=== PATIENT | female | born 1945 | race Caucasian/White ===

== ENCOUNTER 2017-04-04 14:39 | Inpatient (IN) | payer OTHER ==
[~2017-04-04] VITALS: Ht 165.1 cm; Wt 90.3 kg
--- NOTE | 2017-04-04 15:14 | ED INFLUENZA/URI COMPLAINT ---
History of Present Illness General Chief Complaint: Upper Respiratory Sx/Fever Stated Complaint: URI/WHEEZING Source: patient Exam Limitations: no limitations Vital Signs & Intake/Output Vital Signs & Intake/Output Vital Signs Date Time Temp Pulse Resp B/P B/P Pulse O2 O2 Flow FiO2 Mean Ox Delivery Rate 04/05 0809 95 Nasal 2.0L Cannula 04/05 0807 98.6 66 18 125/60 95 Nasal 2.0L Cannula 04/04 1938 97.4 74 24 135/66 85 Room Air Room Air 04/04 1810 99.2 75 24 136/70 95 Aerosol Mask 04/04 1740 92 Nasal 2.0L Cannula 04/04 1645 98 Nasal 2.0L Cannula 04/04 1527 94 Nasal 2.0L Cannula 04/04 1527 100.3 86 24 159/75 88 Room Air Room Air 04/04 1520 100.1 97 24 173/88 86 Room Air ED Intake and Output 04/05 0000 04/04 1200 Intake Total Output Total Balance Patient 194 lb Weight Allergies Coded Allergies: amoxicillin (HIVES 04/04/17) Reconcile Medications No Known Home Medications Triage Note: PT TO ER C/C SOB, DRY/PROD COUGH, DENIES SORE THROAT. TEMP 100.1. RA SAT 86%, Triage Nurses Notes Reviewed? yes Onset: Gradual Duration: day(s): Timing: recent history Severity: moderate HPI: 71yo female presents to ED complaining of cough productive of clear mucus and URI symptoms x 4 days. Patient also reports wheezing and fatigue for the past several days. Also reports decreased PO intact, no appetite. She notes tactile fevers however did not record her temperature at home. Patient began taking Mucinex which helped slightly with her congestion symptoms. Patient current daily smoker. Today patient began experiencing dyspnea especially worse with exertion and was concerned so reported to the ED. the patient denies medical history, she does not use any inhalers. She denies hemoptysis, chest pain, abdominal pain, nausea, vomiting. (Brooklyn Bailey) Past History Travel History Traveled to [place] past 21 day No Medical History Any Pertinent Medical History? none Surgical History Surgical History: non-contributory Psychosocial History What is your primary language Congolese Tobacco Use: Current Daily Use Daily Tobacco Use Amount/Type: => 5 Cigarettes daily Family History Hx Contributory? No (Brooklyn Bailey) Review of Systems Review of Systems Constitutional: Reports: see HPI. EENTM: Reports: see HPI. Respiratory: Reports: see HPI. Cardiovascular: Reports: no symptoms. GI: Reports: see HPI. Genitourinary: Reports: no symptoms. Musculoskeletal: Reports: no symptoms. Skin: Reports: no symptoms. Neurological/Psychological: Reports: no symptoms. Hematologic/Endocrine: Reports: no symptoms. Immunologic/Allergic: Reports: no symptoms. All Other Systems: Reviewed and Negative (Brooklyn Bailey) Physical Exam Physical Exam General Appearance: well developed/nourished, no apparent distress, alert, awake Head: atraumatic, normal appearance Eyes: Bilateral: normal appearance. Ears, Nose, Throat: hearing grossly normal Neck: normal inspection, supple, full range of motion Respiratory: no respiratory distress, diffuse wheezing through out all lung elaine Cardiovascular: regular rate/rhythm Gastrointestinal: normal bowel sounds, soft, non-tender, no organomegaly Back: normal inspection, normal range of motion Extremities: normal inspection, normal range of motion Neurologic/Psych: awake, alert, oriented x 3 Skin: intact, normal color, warm/dry Core Measures Sepsis Present: No Sepsis Focused Exam Completed? No (Brooklyn Bailey) Progress Differential Diagnosis: influenza, otitis, pneumonia, pharyngitis, bronchitis, COPD, CHF Plan of Care: Orders Procedure Date/time Status Regular Diet 04/05 B Active Change service to 04/05 0900 Active Teach/Educate 04/05 0807 Active Pain Treatment and Response 04/05 0807 Active Nutritional Intake, Monitor 04/05 0807 Active Isolation 04/05 0807 Active Patient Care Conference 04/05 0807 Active Activity/Ambulation 04/05 0807 Active Change service to 04/05 0738 Active CBC WITHOUT DIFFERENTIAL 04/05 0600 Complete BASIC ELECTROLYTES PLUS BUN&CR 04/05 0600 Complete ARTERIAL BLOOD GAS (GEN) 04/05 0100 Complete LOWER RESPIRATORY CULTURE 04/05 0011 Active BLOOD CULTURE 04/05 0011 Active TRC EVALUATION (GEN) 04/05 0000 Active FingerStick- Glucose 04/05 UNK Active ECHOCARDIOGRAM 04/05 UNK Active TROPONIN LEVEL 04/04 2359 Complete EKG 04/04 2359 Active Pathway - chart 04/04 2247 Active House Staff 04/04 2247 Active Patient Data 04/04 2247 Active Patient Data 01/16 2101 Active ED Holding Orders 04/04 2056 Active Admit to inpatient 04/04 2056 Active Vital Signs 04/04 2056 Active Code Status 04/04 2056 Active Add-on Test (ER Only) 04/04 1941 Active EKG 04/04 1738 Active TROPONIN LEVEL 04/04 1554 Complete B-TYPE NATRIURETIC PEP (BNP) 04/04 1554 Complete Intake & Output 04/04 1516 Active LACTIC ACID 04/04 1513 Complete COMPREHENSIVE METABOLIC PANEL 04/04 1513 Complete CBC WITHOUT DIFFERENTIAL 04/04 1513 Complete RAPID VIRAL INFLUENZA A 04/04 1455 Complete Lab Add-on Test 04/04 UNK Active VTE Mechanical Prophylaxis 04/04 UNK Active Current Medications Sig/Jose Roberto Start time Last Medication Dose Stop Time Status Admin Enoxaparin Sodium 40 MG DAILY 04/05 1000 AC 04/05 (Lovenox) 1002 Methylprednisolone 40 MG Q8 04/05 0600 AC 04/05 (Solumedrol) 0634 Sodium Chloride 1,000 ML Q13H 04/05 0015 AC 04/05 (Normal Saline 0.9%) 0306 Azithromycin 500 MG DAILY 04/04 2345 AC 04/05 (Zithromax) 0127 Sodium Chloride 250 ML (Normal Saline 0.9%) Guaifenesin 600 MG Q12 04/04 2345 AC 04/05 (Mucinex) 1002 Acetaminophen 1,000 MG Q6P PRN 04/04 2300 AC (Ofirmev) N/A 1 UNIT (No Carrier) Oxycodone HCl 5 MG Q6P PRN 04/04 2300 AC (Roxicodone) Acetaminophen 650 MG Q6P PRN 04/04 2245 AC (Tylenol) Albuterol Sulfate 3 ML ONCE ONE 04/04 1700 CAN (Proventil) 04/04 1701 Laboratory Tests 04/05/17 0550: Anion Gap 16, Estimated GFR > 60, BUN/Creatinine Ratio 31.1 H, CBC w Diff MAN DIFF ORDERED, RBC 4.05 L, MCV 91.4, MCH 30.7, RDW 13.4, MPV 10.1, Gran % 84.9 H, Lymphocytes % 8.2 L, Monocytes % 6.6, Eosinophils % 0.2, Basophils % 0.1, Absolute Granulocytes 9.6 H, Segmented Neutrophils 85 H, Band Neutrophils 2, Absolute Lymphocytes 0.9 L, Lymphocytes 7 L, Monocytes 6, Absolute Monocytes 0.7 H, Absolute Eosinophils 0, Absolute Basophils 0, Platelet Estimate ADEQUATE , Polychromasia 1+, Ovalocytes FEW, PUBS MCHC 33.6, Fld Total RBCs Counted 100 04/05/17 0155: pH 7.36, pCO2 37, pO2 68 L, HCO3 20 L, ABG O2 Sat (Measured) 93.0 L, P-50 ( Temp Corrected) Y, Carboxyhemoglobin 0.6 L, O2 Concentration % 2 LPM, Temperature 97.4, O2 Delivery Method N/C, Phlebotomy Draw Site RIGHT RADIAL 04/05/17 0050: Troponin I 0.01 04/04/17 1813: Lactic Acid Cancelled 04/04/17 1554: Anion Gap 17 H, Estimated GFR > 60, BUN/Creatinine Ratio 17.5, Glucose 109 H, Lactic Acid 0.8, Calcium 9.2, Total Bilirubin 0.4, AST 38 H, ALT 35, Alkaline Phosphatase 78, Troponin I < 0.01, Nhz-V-Mgxahvvykex Pept 183 H, Total Protein 7.2, Albumin 4.2, Globulin 3.0, Albumin/Globulin Ratio 1.4, CBC w Diff NO MAN DIFF REQ, RBC 4.48, MCV 89.4, MCH 30.4, RDW 13.4, MPV 8.2, Gran % 80.2 H, Lymphocytes % 9.1 L, Monocytes % 10.2 H, Eosinophils % 0.1, Basophils % 0.4, Absolute Granulocytes 7.0 H, Absolute Lymphocytes 0.8 L, Absolute Monocytes 0.9 H, Absolute Eosinophils 0, Absolute Basophils 0, PUBS MCHC 33.9 Microbiology 04/05 49 BLOOD: Blood Culture - RECD 04/05 10 LOWER RESP: Respiratory Culture - COLB 04/05 10 LOWER RESP: Gram Stain - COLB 04/05 10 BLOOD: Blood Culture - COLB 04/04 1455 NASOPHARYN: Influenza Virus A & B Rapid Smear - COMP Patient has significant wheezing following DuoNeb, will initiate IV Solu-Medrol, IV magnesium, continuous albuterol nebulizer. Following medications patient has persistent wheezing, hypoxia room air. Patient had oxygen saturation of 87% while ambulating without supplemental oxygen. Due to hypoxia this patient will likely require admission as she has not O2 dependent at home. This patient may have undiagnosed COPD, pulmonary consult recommended. Dr. Jacobson agrees with this plan. The patient was discussed with Dr. Valentino who recommends adding on BNP prior to decision for telemetry versus general medicine admission. Diagnostic Imaging: Viewed by Me: Radiology Read. Discussed w/RAD: Radiology Read. CXR Impression: PATIENT: SAAD REEVES PRESENT AGE: 71 PATIENT ACCOUNT NO: [id number] : 47 LOCATION: [facility] ORDERING PHYSICIAN: Brooklyn SUBRAMANIAN SERVICE DATE: 04/04/17 EXAM TYPE: RAD - XRY-CHEST XRAY, TWO VIEWS EXAMINATION: CHEST 2 VIEWS CLINICAL INFORMATION: Cough. COMPARISON: None. TECHNIQUE: PA and lateral views of the chest were obtained. FINDINGS: The cardiac silhouette is not enlarged. The mediastinal and hilar contours are unremarkable. There are neither pleural effusions nor pneumothoraces. There is mild interstitial prominence present throughout both lungs. There are no consolidations. The osseous structures are unremarkable. IMPRESSION: No consolidations. Mild interstitial prominence throughout both lungs. This is nonspecific, though favored to be chronic. DICTATED BY: Juan José Marquez MD DATE/TIME DICTATED:04/04/171545 OFFICE SERVICES REPRESENTATIVE:NORRIS DATE/TIME TRANSCRIBED:04/04/171545 CONFIDENTIAL, DO NOT COPY WITHOUT APPROPRIATE AUTHORIZATION. <Electronically signed in Other Vendor System> SIGNED BY: Juan José Marquez MD 04/04/17 2557 Initial ED EKG: sinus rhythm @74bpm, flattened t waves (Katlyn SUBRAMANIAN,Brooklyn Paredes) Departure Departure Disposition: STILL A PATIENT Condition: Stable Clinical Impression Primary Impression: Hypoxia Secondary Impressions: Bronchitis Dyspnea Qualifiers: Dyspnea type: dyspnea on exertion Qualified Code: R06.09 - Other forms of dyspnea Referrals: Marita Ortiz DO (PCP/Family) Departure Forms: Customer Survey General Discharge Information Prescriptions: Current Visit Scripts No Known Home Medications Admission Note Spoke With: Allegra Valentino MD Documentation of Exam: Documentation of any treatments & extenuating circumstances including Concerns Regarding Discharge (functional status, medication knowledge or non-compliance, living conditions, etc.) that warrant an admission rather than observation: [ Hypoxemia on room air requiring supplemental oxygen, respiratory therapy, pulmonology consult for possible underlying COPD, IV steroids, possible IV antibiotics, repeat labs, premature discharge would be medically unsafe.] (Katlyn SUBRAMANIAN,Brooklyn Paredes) PA/NITROGEN OPERATOR Co-Sign Statement Statement: ED Attending supervision documentation- [X] I saw and evaluated the patient. I have also reviewed all the pertinent lab results and diagnostic results. I agree with the findings and the plan of care as documented in the PA's/NITROGEN OPERATOR's documentation. [X] I have reviewed the ED Record and agree with the PA's/NITROGEN OPERATOR's documentation. [] Additions or exceptions (if any) to the PAs/NITROGEN OPERATOR's note and plan are summarized below: [] (Indira PIERRE,Marley)
--- NOTE | 2017-04-04 15:53 | RADIOLOGY REPORT ---
EXAMINATION: CHEST 2 VIEWS CLINICAL INFORMATION: Cough. COMPARISON: None. TECHNIQUE: PA and lateral views of the chest were obtained. FINDINGS: The cardiac silhouette is not enlarged. The mediastinal and hilar contours are unremarkable. There are neither pleural effusions nor pneumothoraces. There is mild interstitial prominence present throughout both lungs. There are no consolidations. The osseous structures are unremarkable. IMPRESSION: No consolidations. Mild interstitial prominence throughout both lungs. This is nonspecific, though favored to be chronic.
[2017-04-04 15:59] LABS: ABSOLUTE BASOPHIL COUNT 0 /CUMM (0.0-0.2); ABSOLUTE EOSINOPHIL COUNT 0 /CUMM (0.0-0.7); ABSOLUTE LYMPH COUNT 0.8 /CUMM (1.2-3.4); ABSOLUTE MONOCYTE COUNT 0.9 /CUMM (0.10-0.60); BASOPHIL % 0.4 % (0.0-2.0); EOSINOPHIL % 0.1 % (0-5); HEMATOCRIT 40.1 % (37-47); MEAN CORPUSCULAR HGB 30.4 PG (27.0-31.0); MEAN CORPUSCULAR HGB CONC 33.9 G/DL (33.0-37.0); MEAN CORPUSCULAR VOLUME 89.4 FL (81.0-99.0); MEAN PLATELET VOLUME 8.2 FL (7.4-10.4); PLATELET COUNT 195 /CUMM (130-400); RBC DISTRIBUTION WIDTH 13.4 % (11.5-14.5); RED BLOOD CELL CT 4.48 /CUMM (4.20-5.40); WHITE BLOOD CELL COUNT 8.7 /CUMM (4.8-10.8)
[2017-04-04 16:00] LABS: GRANULOCYTE % 80.2 % (42.2-75.2)
--- NOTE | 2017-04-04 21:49 | History & Physical ---
Kendell PIERRE,[facility] 04/04/17 2148: General Information and HPI MD Statement: I have seen and personally examined SAAD REEVES and documented this H&P. The patient is a 71 year old F who presented with a patient stated chief complaint of [shortness of breath]. Source of Information: patient Exam Limitations: no limitations History of Present Illness: Patient is 71-year-old female with no significant past medical history other than prediabetes. She is presenting to [facility] ED on 04/04 with complaint of shortness of breath. The patient was in her usual state of health until last Monday when she started experiencing symptoms of upper URI sneezing and scratchiness in throat. The past couple of days patient started experiencing shortness of breath which has been becoming worse to a point that she becomes short of breath with little bit of exertion during activities like pulling up her socks. She also reports chest congestion for past 2 days for which she has been taking Mucinex every 6h. She reports mostly dry cough with production of small amount of clear white phlegm couple of times. Also reports nasal congestion. As per patient she has been feeling fatigued and has decreased oral intake since past few days. Patient has been smoking for more than past 20 years almost consumes 1-3/4 of a pack of cigarettes. She does not carry the diagnosis of COPD has never been intubated does not use oxygen at home. Sleeps with one pillow and can walk 3 blocks without getting short of breath at baseline . Patient did not receive flu shot this season but did receive a pneumonia shot. No sick contacts Review of system patient denies fevers and chills endorses bilateral lower extremity swelling. Patient's PCP rule out DVT by venous Doppler. She was advised to wear compression stockings for that. During the encounter the patient was visibly short of breath and was having trouble completing sentences without becoming tachypneic Allergies/Medications Allergies: Coded Allergies: amoxicillin (HIVES 04/04/17) Home Med list No Known Home Medications Past History Travel History Traveled to [place] past 21 day No Surgical History Surgical History: non-contributory Past Family/Social History Family History Relations & Conditions if any MOTHER (CVA). Psychosocial History Where do you live? Home Who Do You Live With? spouse, child Services at Home: None Primary Language: Macedonian Smoking Status: Current Everyday Smoker ETOH Use: occasional use Illicit Drug Use: denies illicit drug use Functional Ability ADLs Independent: dressing, eating, toileting, bathing. Ambulation: independent IADLs Independent: shopping, housework, finances, food prep, telephone, transportation , medication admin. Review of Systems Review of Systems Constitutional: Reports: see HPI. Denies: diaphoresis, weakness. EENTM: Reports: no symptoms. Cardiovascular: Denies: chest pain, orthopena. Respiratory: Reports: short of breath, wheezing. GI: Reports: no symptoms. Genitourinary: Reports: no symptoms. Musculoskeletal: Reports: no symptoms. Skin: Reports: no symptoms. Exam & Diagnostic Data Last 24 Hrs of Vital Signs/I&O Vital Signs Date Time Temp Pulse Resp B/P B/P Pulse O2 O2 Flow FiO2 Mean Ox Delivery Rate 04/04 1938 97.4 74 24 135/66 85 Room Air Room Air 04/04 1810 99.2 75 24 136/70 95 Aerosol Mask 04/04 1740 92 Nasal 2.0L Cannula 04/04 1645 98 Nasal 2.0L Cannula 04/04 1527 94 Nasal 2.0L Cannula 04/04 1527 100.3 86 24 159/75 88 Room Air Room Air 04/04 1520 100.1 97 24 173/88 86 Room Air Intake & Output 04/05 0800 04/05 0000 04/04 1600 Intake Total Output Total Balance Patient 194 lb Weight Physical Exam General Appearance Alert, Oriented X3, Cooperative HEENT Atraumatic, PERRLA, EOMI Neck Supple Cardiovascular Normal S1, Normal S2 Lungs diffuse ronchi Abdomen Normal Bowel Sounds, Soft, No Tenderness Neurological Normal Speech Extremities No Cyanosis, b/l +1 pitting edema lower extremity Last 24 Hrs of Labs/Abel: Laboratory Tests 04/05/17 0155: pH 7.36, pCO2 37, pO2 68 L, HCO3 20 L, ABG O2 Sat (Measured) 93.0 L, P-50 ( Temp Corrected) Y, Carboxyhemoglobin 0.6 L, O2 Concentration % 2 LPM, Temperature 97.4, O2 Delivery Method N/C, Phlebotomy Draw Site RIGHT RADIAL 04/05/17 0050: Troponin I 0.01 04/04/17 1813: Lactic Acid Cancelled 04/04/17 1554: Anion Gap 17 H, Estimated GFR > 60, BUN/Creatinine Ratio 17.5, Glucose 109 H, Lactic Acid 0.8, Calcium 9.2, Total Bilirubin 0.4, AST 38 H, ALT 35, Alkaline Phosphatase 78, Troponin I < 0.01, Lax-V-Hzdxlwfscaw Pept 183 H, Total Protein 7.2, Albumin 4.2, Globulin 3.0, Albumin/Globulin Ratio 1.4, CBC w Diff NO MAN DIFF REQ, RBC 4.48, MCV 89.4, MCH 30.4, RDW 13.4, MPV 8.2, Gran % 80.2 H, Lymphocytes % 9.1 L, Monocytes % 10.2 H, Eosinophils % 0.1, Basophils % 0.4, Absolute Granulocytes 7.0 H, Absolute Lymphocytes 0.8 L, Absolute Monocytes 0.9 H, Absolute Eosinophils 0, Absolute Basophils 0, PUBS MCHC 33.9 Microbiology 04/05 0050 BLOOD: Blood Culture - RECD 04/05 0011 LOWER RESP: Respiratory Culture - ORD 04/05 0011 LOWER RESP: Gram Stain - ORD 04/05 10 BLOOD: Blood Culture - ORD 04/04 1455 NASOPHARYN: Influenza Virus A & B Rapid Smear - COMP Diagnostic Data CXR Results No consolidations. Mild interstitial prominence throughout both lungs. This is nonspecific, though favored to be chronic. Assessment/Plan Assessment: Patient is 71-year-old female with no significant past medical history other than prediabetes. She is presenting to [facility] ED on 04/04 with complaint of shortness of breath. -VS MAXIMUM TEMPERATURE 100.3, oxygen saturation 86% on room air on presentation improved to 92% on 2 L -Pertinent labs CBC WNL, Anion gap 17, proBNP 183, flu test negative -In ED patient received magnesium sulfate, 125 methylprednisone and nebulization treatment -The patient is being admitted to general medicine floor and is being treated and evaluated for following conditions #Acute hypoxic respiratory failure Patient presented with shortness of breath along with oxygen saturation of 86% on room air, she improved to 92% on 2 L and 95% on aerosol mask she again came to 85% on room air. Patient was visibly tachypneic during the encounter and was having trouble completing her sentences without becoming short of breath. Patient has been smoking for past 20 years about one pack per day. She might have underlying COPD and will require evaluation for that. Given her recent URI there might be a component of viral bronchitis. Consider Tamiflu if patient spikes fever greater than 100.9 as sensitivity of rapid flu test is about 60-70% -Monitor WBC and fever curve (expected bump in WBC count secondary to steroids) -Oxygen supplementation to maintain oxygen saturation above 92 -IV Solu-Medrol every 8H -TRC, Mucinex, Z-Jose -ABG's -F/u LRS and blood cultures -Outpatient referral for floral designer salesperson for pulmonary function test #Smoker -Nicotine patch -Counseled on smoking cessation #B/L lower extremity edema -Continue comression stocking and leg elevation -Echocardiogram to rule out CHF #Prediabetes -check HbA1c #Full code/regular diet/DVT prophylaxis with Lovenox As Ranked By This Provider Problem List: 1. Dyspnea Qualifiers Dyspnea type: dyspnea on exertion Qualified Code: R06.09 - Other forms of dyspnea 2. Hypoxia Core Measures/Misc (12/04) Acute Coronary Syndrome ACS Diagnosis: No Congestive Heart Failure Congestive Heart Failure Diagnosis No Cerebrovascular Accident CVA/TIA Diagnosis: No VTE (View Protocol) VTE Risk Factors Age>40 No Mechanical VTE Prophylaxis d/t N/A MechProphylax Ordered No VTE Pharm Prophylaxis d/t NA PharmProphylax ordered Sepsis (View protocol) Sepsis Present: No Sole Smith 04/05/17 0334: Resident Review Statement Resident Statement: examined this patient, discussed with chemist intern Other Findings: Patient is a 71-year-old pleasant woman with no past medical history except for prediabetes and current heavy smoker presented to the ED for the evaluation of URI symptoms and shortness of breath. Patient was in his usual state of health until 5 days ago when she started having URI symptoms including postnasal drip, chest congestion and irritation in the throat complicated with shortness of breath mostly with exertion. With the last 2 days she has been feeling more congested with productive cough ,has been taking Mucinex without much relief. Also she reports worsening shortness of breath with wheezing without any chest discomfort palpitations denies any fever or chills, patient received pneumo vaccine but did not get a flu vaccine this year. Other review of system is negative Patient did mention that she has been having lower extremity swelling for a couple of weeks had a Doppler venous ultrasound as an outpatient to rule out any underlying DVT also has been evaluated by vascular surgeon and apparently had a Doppler arterial ultrasound that ruled out) peripheral vascular disease, she has been using compression stockings. She has a long-standing history of smoking smoked more than 20 years , 1-3/4 of a pack of cigarettes ,continues to smoke at least since 10 cigs, never been diagnosed with any underlying lung disease/COPD. Vitals on admission temperature MAXIMUM TEMPERATURE of 100.3, pulse 97, respiratory 24, blood pressure 173/88 improved to 136/70, patient was initially room air desaturated to 88% was put on 2 L of oxygen per nasal cannula. On examination: General Appearance:alert oriented 3, mild to moderate distress Skin: Grossly normal HEENT: PERRLA Neck: Supple, No JVD Cardiovascular: Regular Rate, Normal S1, Normal S2. Lungs: Bilateral coarse rhonchi on exam Abdominal exam : Normal bowel sounds without any tenderness Neurological: Grossly intact Extremities : Minimal to 1+ pitting edema bilaterally in the lower extremities Pertinent labs on admission with normal WBC count H&H stable, elevated anion gap 17, slight transaminitis AST 38 proBNP 183 ABG :showed PO2 68, bicarbonate 20, pH 7.36 with PCO2 37 chest x-ray normal Negative for influenza Assessment and plan Patient is a 71-year-old pleasant woman with no past medical history except for prediabetes and current heavy smoker presented to the ED for the evaluation of URI symptoms and shortness of breath, patient was in acute respiratory distress upon arrival in the ED desaturated to 86-88% was put on 2 L of oxygen nasal cannula. Patient will likely have an underlying component of COPD due to long-standing smoking history we will treat her with IV steroids, also on the basis of upper respiratory symptoms with rhonchi on examination patient might have underlying bronchitis Problem list Acute hypoxic respiratory failure likely due to undiagnosed COPD exacerbation with suspected. Bronchitis history of lower extremity swelling -rule out CHF Chronic every day smoker History of prediabetes DVT prophylaxis with Lovenox Plan Acute hypoxic respiratory failure likely due to undiagnosed COPD exacerbation with suspected. Bronchitis * Admit the patient [facility] floor * Patient already received 1 dose of IV Solu-Medrol 125 mg in the ED will continue with IV Solu-Medrol 40 mg every 8 hours. * Start the patient on IV azithromycin for possible bacterial bronchitis * Continue with gentle hydration * Obtain blood and sputum cultures. * Monitor vitals every 4 hours * If patient spikes fever will consider starting the patient on Tamiflu to empirically treat her for influenza as the sensitivity of flu swab is only 60-70 % history of lower extremity swelling -rule out CHF * Obtain echocardiogram * 2 sets of troponin with EKG * Continue with compression stockings * Keep the legs elevated. Chronic every day smoker * Consider nicotine patch. History of prediabetes * Consider hemoglobin A1c DVT prophylaxis with Lovenox Mild to moderate pain controlled with Tylenol Patient is full code . Allegra Valentino 04/05/17 0456: Attending MD Review Statement Attending Statement Attending MD Statement: examined this patient, discuss w/resident/PA/GANG BOSS, agreed w/resident/PA/GANG BOSS, reviewed EMR data (avail), reviewed images, amended to note Attending Assessment/Plan: CC: Shortness of breath PMH: Prediabetes Patient came to ER for acute worsening of shortness of breath today. Patient states that she has not been feeling well since last Monday (7 days), started with scratchy throat followed by chest congestion, nasal discharge then on Monday patient started to notice worsening of breathing, cough with minimal clear sputum production. Patient tried taking Mucinex but cough got progressively worse and worse along with worsening of breathing to the extent that she could not even walk a few steps today so she came to ER. She thought she felt febrile at home and took aspirin but she did not have actual fever. Denies any myalgia, denies chest pain, palpitations, orthopnea, PND, dizziness, loss of consciousness, nausea vomiting or any other complaints. Since 6 months patient has been noticing lower extremity swelling, right more than left, was investigated with Doppler ultrasound bilateral lower extremity, then was started on compression stockings which make her feel better. Denies any use of Lasix, denies any significant weight gain, night sweats or chills. Her has cancer but he is not sick around her. Extensive smoking history. Vitals: T max 100.3, also 97, RR 24, blood pressure 173/88, saturating 86% on room air improved to 92% on 2 L nasal cannula On exam: A O 3, cooperative, moderate respiratory distress, neck supple, JVD normal, no lymphadenopathy, mucosa dry, no focal neurological deficit, +1 leg edema R>L, no obvious skin rashes or inflammation CVS: S1-S2, RRR. RS: Bilateral rhonchi, tachypneic, transmitted sounds. Abdomen: Soft, NT, ND, bowel sounds present. Labs: WBC 8.7, hemoglobin 13.6, hematocrit 40.1, platelet 195, neutrophils 80%, sodium 145, potassium 4.1, chloride 105, bicarbonate 22, BUN 14, creatinine 0.8, glucose 109, calcium 9.2 LFT unremarkable, proBNP 183, rapid flu negative CXR: No consolidations. Mild interstitial prominence throughout both lungs. This is nonspecific, though favored to be chronic. Assessment and plan 71-year-old female with no significant past medical history, not on home nebulization inhaler treatment but extensive smoking history presented in ER for worsening of shortness of breath since last 5-6 days preceded by URI symptoms of nasal congestion, nasal discharge, scratchy throat, chest congestion. Shortness of breath is also associated with cough with minimal clear colored sputum production, denies any chest pain, palpitations. T max of 100.3 in ER, bilateral rhonchi present but no significant wheezing or prolonged expiration. Patient has significant work of breathing with tachypnea. According to her she feels much better after nebulization treatment in ER. It appears that patient may have baseline COPD which is not diagnosed, and URI may have triggered her exacerbation prominent bronchitis. At the same time influenza is also a possibility as rapid flu test has low sensitivity. If patient spikes fever then consider starting her on Tamiflu empirically. No evidence of pneumonia, proBNP unremarkable, JVD not elevated, no crackles or ruling out heart failure. + Acute hypoxic respiratory failure probably to underlying COPD with exacerbation - Admit to general medicine - Try to wean off oxygen - IV methylprednisolone 40 mg every 8 hours - IV azithromycin - TRC nebulization with albuterol and ipratropium scheduled and when necessary - Mucinex scheduled twice a day - Obtain 2-D echocardiogram given her extensive smoking history and bilateral lower extremity edema - Adequate pain control - DVT prophylaxis - Nicotine patch - Consider starting empiric Tamiflu if fever spikes - Accu-Cheks as patient being on IV methylprednisolone
--- NOTE | 2017-04-05 04:58 | Admission Certification ---
Admission Certification Certification Statement - As attending physician, I certify that at the time of - admission, based on clinical presentation, severity of - symptoms, need for further diagnostic testing and - therapeutic interventions, and risk of adverse outcomes - without in-hospital treatment, in my clinical assessment, - this patient requires an acute hospital stay for a minimum - of two nights or longer. I have also considered psychsocial - factors such as support system, advanced age, financial - issues, cognitive issues, and failed out-patient treatments, - past re-admission history, safety of patient, and lack of - compliance as applicable. Specific rationale supporting this admission is: Suspected COPD, with exacerbation and hypoxia
[2017-04-05 06:07] LABS: ABSOLUTE BASOPHIL COUNT 0 /CUMM (0.0-0.2); ABSOLUTE EOSINOPHIL COUNT 0 /CUMM (0.0-0.7); ABSOLUTE GRANULOCYTE CT 9.6 /CUMM (1.4-6.5); ABSOLUTE LYMPH COUNT 0.9 /CUMM (1.2-3.4); ABSOLUTE MONOCYTE COUNT 0.7 /CUMM (0.10-0.60); BASOPHIL % 0.1 % (0.0-2.0); EOSINOPHIL % 0.2 % (0-5); GRANULOCYTE % 84.9 % (42.2-75.2); MEAN CORPUSCULAR HGB 30.7 PG (27.0-31.0); MEAN CORPUSCULAR HGB CONC 33.6 G/DL (33.0-37.0); MEAN CORPUSCULAR VOLUME 91.4 FL (81.0-99.0); MEAN PLATELET VOLUME 10.1 FL (7.4-10.4); PLATELET COUNT 168 /CUMM (130-400); RBC DISTRIBUTION WIDTH 13.4 % (11.5-14.5); RED BLOOD CELL CT 4.05 /CUMM (4.20-5.40); WHITE BLOOD CELL COUNT 11.3 /CUMM (4.8-10.8)
--- NOTE | 2017-04-05 07:31 | PN- Housestaff ---
Subjective Follow-up For: COPD exacerbation Complaints: SOB Subjective: Patient was seen and examined this morning. She is still very short of breath and cannot speak in full sentences but feeling better after starting IV steroids and nebulizations. Her oxygen requirement is 2 L. She remained afebrile and hemodynamically stable. Review of Systems Constitutional: Denies: chills, diaphoresis, fever. EENTM: Denies: visual changes, eye pain. Cardiovascular: Denies: edema, orthopena. Respiratory: Reports: short of breath. Gastrointestinal: Denies: constipation. Genitourinary: Denies: dysuria, frequency. Objective Last 24 Hrs of Vital Signs/I&O Vital Signs Date Time Temp Pulse Resp B/P B/P Pulse O2 O2 Flow FiO2 Mean Ox Delivery Rate 04/05 0809 95 Nasal 2.0L Cannula 04/05 0807 98.6 66 18 125/60 95 Nasal 2.0L Cannula 04/04 1938 97.4 74 24 135/66 85 Room Air Room Air 04/04 1810 99.2 75 24 136/70 95 Aerosol Mask 04/04 1740 92 Nasal 2.0L Cannula 04/04 1645 98 Nasal 2.0L Cannula 04/04 1527 94 Nasal 2.0L Cannula 04/04 1527 100.3 86 24 159/75 88 Room Air Room Air 04/04 1520 100.1 97 24 173/88 86 Room Air Intake & Output 04/05 1600 04/05 0800 04/05 0000 Intake Total 730 Output Total 500 Balance 230 Intake, IV 250 Intake, Oral 480 Output, Urine 500 Patient 194 lb Weight Weight Reported by Patient Measurement Method Physical Exam General Appearance: Alert, Oriented X3, Cooperative, Mild Distress Cardiovascular: Regular Rate, Normal S1, Normal S2 Lungs: bilateral wheezing and reduced air entry Abdomen: Soft, No Tenderness, No Hepatospenomegaly Extremities: No Clubbing, No Cyanosis, No Edema Current Medications: Current Medications Sig/Jose Roberto Start time Last Medication Dose Route Stop Time Status Admin Acetaminophen 1,000 MG Q6P PRN 04/04 2300 AC N/A 1 UNIT IV Acetaminophen 650 MG Q6P PRN 04/04 2245 AC PO Albuterol Sulfate 18 ML ONCE ONE 04/04 1715 DC 04/04 INH 04/04 1716 1728 Albuterol Sulfate 3 ML ONCE ONE 04/04 1700 CAN INH 04/04 1701 Albuterol Sulfate 3 ML ONCE ONE 04/04 1600 DC 04/04 INH 04/04 1601 1625 Azithromycin 500 MG DAILY 04/04 2345 AC 04/05 Sodium Chloride 250 ML IV 0127 Enoxaparin Sodium 0 .STK-MED ONE 04/05 1001 DC SC Enoxaparin Sodium 40 MG DAILY 04/05 1000 AC 04/05 SC 1002 Guaifenesin 600 MG Q12 04/04 2345 AC 04/05 PO 1002 Ipratropium [place] 2.5 ML ONCE ONE 04/04 1600 DC 04/04 INH 04/04 1601 1624 Magnesium Sulfate 1 GM ONCE ONE 04/04 1745 DC 04/04 Dextrose/Water 100 ML IV 04/04 2144 1806 Methylprednisolone 0 .STK-MED ONE 04/05 0630 DC .ROUTE Methylprednisolone 40 MG Q8 04/05 0600 AC 04/05 IV 0634 Methylprednisolone 0 .STK-MED ONE 04/04 1803 DC .ROUTE Methylprednisolone 125 MG ONCE ONE 04/04 1700 DC 04/04 IV 04/04 1701 1806 Oxycodone HCl 5 MG Q6P PRN 04/04 2300 AC PO Sodium Chloride 1,000 ML Q13H 04/05 0015 DC 04/05 IV 0306 Last 24 Hrs of Lab/Abel Results Last 24 Hrs of Labs/Mics: Laboratory Tests 04/05/17 0550: Anion Gap 16, Estimated GFR > 60, BUN/Creatinine Ratio 31.1 H, CBC w Diff MAN DIFF ORDERED, RBC 4.05 L, MCV 91.4, MCH 30.7, RDW 13.4, MPV 10.1, Gran % 84.9 H, Lymphocytes % 8.2 L, Monocytes % 6.6, Eosinophils % 0.2, Basophils % 0.1, Absolute Granulocytes 9.6 H, Segmented Neutrophils 85 H, Band Neutrophils 2, Absolute Lymphocytes 0.9 L, Lymphocytes 7 L, Monocytes 6, Absolute Monocytes 0.7 H, Absolute Eosinophils 0, Absolute Basophils 0, Platelet Estimate ADEQUATE , Polychromasia 1+, Ovalocytes FEW, PUBS MCHC 33.6, Fld Total RBCs Counted 100 04/05/17 0155: pH 7.36, pCO2 37, pO2 68 L, HCO3 20 L, ABG O2 Sat (Measured) 93.0 L, P-50 ( Temp Corrected) Y, Carboxyhemoglobin 0.6 L, O2 Concentration % 2 LPM, Temperature 97.4, O2 Delivery Method N/C, Phlebotomy Draw Site RIGHT RADIAL 04/05/17 0050: Troponin I 0.01 04/04/17 1813: Lactic Acid Cancelled 04/04/17 1554: Anion Gap 17 H, Estimated GFR > 60, BUN/Creatinine Ratio 17.5, Glucose 109 H, Lactic Acid 0.8, Calcium 9.2, Total Bilirubin 0.4, AST 38 H, ALT 35, Alkaline Phosphatase 78, Troponin I < 0.01, Lyc-V-Fmmhxpcvcqv Pept 183 H, Total Protein 7.2, Albumin 4.2, Globulin 3.0, Albumin/Globulin Ratio 1.4, CBC w Diff NO MAN DIFF REQ, RBC 4.48, MCV 89.4, MCH 30.4, RDW 13.4, MPV 8.2, Gran % 80.2 H, Lymphocytes % 9.1 L, Monocytes % 10.2 H, Eosinophils % 0.1, Basophils % 0.4, Absolute Granulocytes 7.0 H, Absolute Lymphocytes 0.8 L, Absolute Monocytes 0.9 H, Absolute Eosinophils 0, Absolute Basophils 0, PUBS MCHC 33.9 Microbiology 04/05 005 BLOOD: Blood Culture - RECD 04/05 10 LOWER RESP: Respiratory Culture - COLB 04/05 10 LOWER RESP: Gram Stain - COLB 04/05 10 BLOOD: Blood Culture - COLB 04/04 1455 NASOPHARYN: Influenza Virus A & B Rapid Smear - COMP Assessment/Plan Assessment: Patient is 71-year-old female current smoker with past medical history significant for prediabetes came in with chief complaint of worsening shortness of breath which could be due to undiagnosed COPD exacerbation/acute bronchitis. Patient was admitted on general medical floor and we will address following problems Problem #1 acute hypoxic respiratory failure likely due to undiagnosed COPD exacerbation/bronchitis. * Patient has significant relief and her symptoms after IV Solu-Medrol. On auscultation she still leasing and has reduced air entry. We would continue IV Solu-Medrol 40 mg every 8 hours for now and might change it to more to q12 hours * We will continue azithromycin for its anti-inflammatory benefits. * Her sodium level is creeping up. We will discontinue her normal saline and we will recheck her labs tomorrow. * TRC and nebulization * We will follow-up on low respiratory tract cultures * Rapid flu test came back negative * Supplemental oxygen to keep oxygen saturation more than 90%. Pharmacological DVT prophylaxis Regular diet Patient is full code Problem List: 1. Hypoxia 2. Dyspnea 3. Bronchitis Pain Ratin Pain Location: na Pain Goal: Remain pain free Pain Plan: tylenol Tomorrow's Labs & Rationales: cbc and bep
[2017-04-05 08:07] VITALS: BP 125/60
--- NOTE | 2017-04-05 11:23 | PN- Att Addend ---
See Addendum Attending Addendum Attending Brief Note Patient seen and examined, still wheezing. Feeling slightly better compared to yesterday. Still requiring significant amount of oxygen. Vital Signs Date Time Temp Pulse Resp B/P B/P Pulse O2 O2 Flow FiO2 Mean Ox Delivery Rate 04/05 0809 95 Nasal 2.0L Cannula 04/05 0807 98.6 66 18 125/60 95 Nasal 2.0L Cannula 04/04 1938 97.4 74 24 135/66 85 Room Air Room Air 04/04 1810 99.2 75 24 136/70 95 Aerosol Mask 04/04 1740 92 Nasal 2.0L Cannula 04/04 1645 98 Nasal 2.0L Cannula 04/04 1527 94 Nasal 2.0L Cannula 04/04 1527 100.3 86 24 159/75 88 Room Air Room Air 04/04 1520 100.1 97 24 173/88 86 Room Air on exam; aox3, nad. cv; s1,s2, rrr resp; b/l exp wheze. abd; soft, nt, bs+ ext; no edema. Laboratory Tests 04/05 04/05 04/05 0550 0155 0050 Blood Gas pH (7.35 - 7.45 PH) 7.36 pCO2 (35 - 45 TORR) 37 pO2 (80 - 100 TORR) 68 L HCO3 (21 - 28 MEQ/L) 20 L ABG O2 Sat (Measured) (>96.0 %) 93.0 L P-50 (Temp Corrected) Y Carboxyhemoglobin (1.5 - 5.0 %) 0.6 L O2 Concentration % 2 LPM Temperature (97.0 - 100.0 FARH) 97.4 O2 Delivery Method N/C Chemistry Sodium (137 - 145 mmol/L) 148 H Potassium (3.5 - 5.1 mmol/L) 4.5 Chloride (98 - 107 mmol/L) 111 H Carbon Dioxide (22 - 30 mmol/L) 21 L Anion Gap (5 - 16) 16 BUN (7 - 17 mg/dL) 28 H Creatinine (0.5 - 1.0 mg/dL) 0.9 Estimated GFR (>60 ml/min) > 60 BUN/Creatinine Ratio (7 - 25 %) 31.1 H Troponin I (< 0.11 ng/ml) 0.01 Hematology CBC w Diff MAN DIFF ORDERED WBC (4.8 - 10.8 /CUMM) 11.3 H RBC (4.20 - 5.40 /CUMM) 4.05 L Hgb (12.0 - 16.0 G/DL) 12.4 Hct (37 - 47 %) 37.0 MCV (81.0 - 99.0 FL) 91.4 MCH (27.0 - 31.0 PG) 30.7 RDW (11.5 - 14.5 %) 13.4 Plt Count (130 - 400 /CUMM) 168 MPV (7.4 - 10.4 FL) 10.1 Gran % (42.2 - 75.2 %) 84.9 H Lymphocytes % (20.5 - 51.1 %) 8.2 L Monocytes % (1.7 - 9.3 %) 6.6 Eosinophils % (0 - 5 %) 0.2 Basophils % (0.0 - 2.0 %) 0.1 Absolute Granulocytes (1.4 - 6.5 /CUMM) 9.6 H Segmented Neutrophils (42.2 - 75.2 %) 85 H Band Neutrophils (0.0 - 5.0 %) 2 Absolute Lymphocytes (1.2 - 3.4 /CUMM) 0.9 L Lymphocytes (20.5 - 51.1 %) 7 L Monocytes (1.7 - 9.3 %) 6 Absolute Monocytes (0.10 - 0.60 /CUMM) 0.7 H Absolute Eosinophils (0.0 - 0.7 /CUMM) 0 Absolute Basophils (0.0 - 0.2 /CUMM) 0 Platelet Estimate (ADEQUATE) ADEQUATE Polychromasia 1+ Ovalocytes FEW PUBS MCHC (33.0 - 37.0 G/DL) 33.6 Miscellaneous Phlebotomy Draw Site RIGHT RADIAL Other Body Source Fld Total RBCs Counted (%) 100 04/04 04/04 1813 1554 Chemistry Sodium (137 - 145 mmol/L) 145 Potassium (3.5 - 5.1 mmol/L) 4.1 Chloride (98 - 107 mmol/L) 105 Carbon Dioxide (22 - 30 mmol/L) 22 Anion Gap (5 - 16) 17 H BUN (7 - 17 mg/dL) 14 Creatinine (0.5 - 1.0 mg/dL) 0.8 Estimated GFR (>60 ml/min) > 60 BUN/Creatinine Ratio (7 - 25 %) 17.5 Glucose (65 - 99 mg/dL) 109 H Lactic Acid (0.7 - 2.1 mmol/L) Cancelled 0.8 Calcium (8.4 - 10.2 mg/dL) 9.2 Total Bilirubin (0.2 - 1.3 mg/dL) 0.4 AST (14 - 36 U/L) 38 H ALT (9 - 52 U/L) 35 Alkaline Phosphatase (<127 U/L) 78 Troponin I (< 0.11 ng/ml) < 0.01 Whk-N-Bpasjctmndr Pept (<125 pg/mL) 183 H Total Protein (6.3 - 8.2 g/dL) 7.2 Albumin (3.5 - 5.0 g/dL) 4.2 Globulin (1.9 - 4.2 gm/dL) 3.0 Albumin/Globulin Ratio (1.1 - 2.2 %) 1.4 Hematology CBC w Diff NO MAN DIFF REQ WBC (4.8 - 10.8 /CUMM) 8.7 RBC (4.20 - 5.40 /CUMM) 4.48 Hgb (12.0 - 16.0 G/DL) 13.6 Hct (37 - 47 %) 40.1 MCV (81.0 - 99.0 FL) 89.4 MCH (27.0 - 31.0 PG) 30.4 RDW (11.5 - 14.5 %) 13.4 Plt Count (130 - 400 /CUMM) 195 MPV (7.4 - 10.4 FL) 8.2 Gran % (42.2 - 75.2 %) 80.2 H Lymphocytes % (20.5 - 51.1 %) 9.1 L Monocytes % (1.7 - 9.3 %) 10.2 H Eosinophils % (0 - 5 %) 0.1 Basophils % (0.0 - 2.0 %) 0.4 Absolute Granulocytes (1.4 - 6.5 /CUMM) 7.0 H Absolute Lymphocytes (1.2 - 3.4 /CUMM) 0.8 L Absolute Monocytes (0.10 - 0.60 /CUMM) 0.9 H Absolute Eosinophils (0.0 - 0.7 /CUMM) 0 Absolute Basophils (0.0 - 0.2 /CUMM) 0 PUBS MCHC (33.0 - 37.0 G/DL) 33.9 A/P; 71-year-old female with no known significant past history admitted with acute hypoxemic respiratory failure likely secondary to acute bronchitis and COPD exacerbation. Patient will be continued on IV steroids and azithromycin today. We will check the sputum culture. Continue TRC nebs. Still requiring significant amount of oxygen and will try to taper it down. We will follow-up on the cultures. DVT prophylaxis: Lovenox.
[2017-04-05 16:12] VITALS: BP 146/65
[2017-04-05 17:21] VITALS: BP 130/80
[2017-04-05 22:18] VITALS: BP 132/60
[2017-04-06 06:53] VITALS: BP 118/70
--- NOTE | 2017-04-06 07:57 | PN- Housestaff ---
Bethanie Roberts 04/06/17 0757: Subjective Follow-up For: COPD exacerbation Complaints: no complaints Subjective: Patient was seen and examined this morning. She was sitting comfortably on bed without any complaints. Her respiratory status is better than before but still she gets short of breath and was not able to complete full sentences. Review of Systems Constitutional: Denies: diaphoresis, fever. Cardiovascular: Denies: edema. Respiratory: Reports: short of breath. Gastrointestinal: Denies: constipation, diarrhea. Genitourinary: Denies: frequency, hematuria. Objective Last 24 Hrs of Vital Signs/I&O Vital Signs Date Time Temp Pulse Resp B/P B/P Pulse O2 O2 Flow FiO2 Mean Ox Delivery Rate 04/06 1148 97.4 04/06 0843 94 Nasal 2.5L Cannula 04/06 0800 Nasal 2.5L Cannula 04/06 0653 98.1 60 20 118/70 96 Nasal 2.5L Cannula 04/06 0000 Nasal 2.5L Cannula 04/05 2218 98.4 69 20 132/60 95 Nasal Cannula 04/05 1919 Nasal 2.5L Cannula 04/05 1730 96 Nasal 3.0L Cannula 04/05 1721 97.8 70 22 130/80 95 Nasal Cannula 04/05 1620 Nasal 4.0L Cannula 04/05 1612 98.3 65 22 146/65 95 Nasal 2.0L Cannula Intake & Output 04/06 1600 04/06 0800 04/06 0000 Intake Total 980 250 200 Output Total Balance 980 250 200 Intake, IV 300 Intake, Oral 680 250 200 Patient 199 lb Weight Weight Bed scale Measurement Method Physical Exam General Appearance: Alert, Oriented X3, Cooperative, Mild Distress Cardiovascular: Regular Rate, Normal S1, Normal S2 Lungs: slightly better. Entry than yesterday but still wheezing. Abdomen: Soft, No Tenderness Extremities: No Clubbing Current Medications: Current Medications Sig/Jose Roberto Start time Last Medication Dose Route Stop Time Status Admin Acetaminophen 1,000 MG Q6P PRN 04/04 2300 AC N/A 1 UNIT IV Acetaminophen 650 MG Q6P PRN 04/04 2245 AC PO Albuterol Sulfate 3 ML EVERY 4 HRS/AWAKE 04/05 2000 AC 04/06 INH 1323 Azithromycin 500 MG DAILY 04/04 2345 AC 04/06 Sodium Chloride 250 ML IV 0930 Enoxaparin Sodium 40 MG DAILY 04/05 1000 AC 04/06 SC 0927 Guaifenesin 600 MG Q12 04/04 2345 AC 04/06 PO 0928 Influenza Virus 0.5 ML ONCE ONE 04/06 0815 DC 04/06 Vaccine IM 04/06 0816 1146 Ipratropium [place] 2.5 ML EVERY 4 HRS/AWAKE 04/05 2000 AC 04/06 INH 1322 Methylprednisolone 40 MG Q12 04/06 2200 AC IV Methylprednisolone 40 MG Q8 04/05 0600 DC 04/06 IV 0527 Oxycodone HCl 5 MG Q6P PRN 04/04 2300 AC PO Last 24 Hrs of Lab/Abel Results Last 24 Hrs of Labs/Mics: Laboratory Tests 04/06/17 0735: Anion Gap 13, Estimated GFR > 60, BUN/Creatinine Ratio 40.0 H, CBC w Diff NO MAN DIFF REQ, RBC 3.96 L, MCV 90.7, MCH 30.3, RDW 13.3, MPV 9.2, Gran % 83.7 H , Lymphocytes % 10.3 L, Monocytes % 6.0, Eosinophils % 0, Basophils % 0, Absolute Granulocytes 8.2 H, Absolute Lymphocytes 1.0 L, Absolute Monocytes 0.6, Absolute Eosinophils 0, Absolute Basophils 0, PUBS MCHC 33.4 Assessment/Plan Assessment: Patient is 71-year-old female current smoker with past medical history significant for prediabetes came in with chief complaint of worsening shortness of breath which could be due to undiagnosed COPD exacerbation/acute bronchitis. Patient was admitted on general medical floor and we will address following problems Problem #1 acute hypoxic respiratory failure likely due to undiagnosed COPD exacerbation/bronchitis. * Patient has significant relief and her symptoms after IV Solu-Medrol. We will reduce it to every 12 hours. * We will continue azithromycin for its anti-inflammatory benefits. * Her sodium level is creeping up. We will discontinue her normal saline and we will recheck her labs tomorrow. * TRC and nebulization * We will follow-up on low respiratory tract cultures * Rapid flu test came back negative * Supplemental oxygen to keep oxygen saturation more than 90%. Pharmacological DVT prophylaxis Regular diet Patient is full code Problem List: 1. Hypoxia 2. Bronchitis Pain Ratin Pain Location: And Pain Goal: Remain pain free Pain Plan: Tylenol Tomorrow's Labs & Rationales: CBC and basic electrolyte panel Chayito Hernández MD 04/06/17 1126: Attending MD Review Statement Attending Statement Attending MD Statement: examined this patient, discuss w/resident/PA/SKEIN DYER, agreed w/resident/PA/SKEIN DYER, reviewed EMR data (avail), discussed with nursing, discussed with case mgmt, reviewed images, amended to note Attending Assessment/Plan: Patient seen and examined, feeling slightly better today. Still requiring oxygen. Vital Signs Date Time Temp Pulse Resp B/P B/P Pulse O2 O2 Flow FiO2 Mean Ox Delivery Rate 04/06 0843 94 Nasal 2.5L Cannula 04/06 0800 Nasal 2.5L Cannula 04/06 0653 98.1 60 20 118/70 96 Nasal 2.5L Cannula 04/06 0000 Nasal 2.5L Cannula 04/05 2218 98.4 69 20 132/60 95 Nasal Cannula 04/05 1919 Nasal 2.5L Cannula 04/05 1730 96 Nasal 3.0L Cannula 04/05 1721 97.8 70 22 130/80 95 Nasal Cannula 04/05 1620 Nasal 4.0L Cannula 04/05 1612 98.3 65 22 146/65 95 Nasal 2.0L Cannula on exam; aox3, nad. cv; s1, s2, rrr resp; mild scattered wheeze, improved than yesterday. abd; soft, nt, bs+ ext; trace edema. Laboratory Tests 04/06 0735 Chemistry Sodium (137 - 145 mmol/L) 146 H Potassium (3.5 - 5.1 mmol/L) 4.9 Chloride (98 - 107 mmol/L) 109 H Carbon Dioxide (22 - 30 mmol/L) 23 Anion Gap (5 - 16) 13 BUN (7 - 17 mg/dL) 28 H Creatinine (0.5 - 1.0 mg/dL) 0.7 Estimated GFR (>60 ml/min) > 60 BUN/Creatinine Ratio (7 - 25 %) 40.0 H Hematology CBC w Diff NO MAN DIFF REQ WBC (4.8 - 10.8 /CUMM) 9.8 RBC (4.20 - 5.40 /CUMM) 3.96 L Hgb (12.0 - 16.0 G/DL) 12.0 Hct (37 - 47 %) 35.9 L MCV (81.0 - 99.0 FL) 90.7 MCH (27.0 - 31.0 PG) 30.3 RDW (11.5 - 14.5 %) 13.3 Plt Count (130 - 400 /CUMM) 186 MPV (7.4 - 10.4 FL) 9.2 Gran % (42.2 - 75.2 %) 83.7 H Lymphocytes % (20.5 - 51.1 %) 10.3 L Monocytes % (1.7 - 9.3 %) 6.0 Eosinophils % (0 - 5 %) 0 Basophils % (0.0 - 2.0 %) 0 Absolute Granulocytes (1.4 - 6.5 /CUMM) 8.2 H Absolute Lymphocytes (1.2 - 3.4 /CUMM) 1.0 L Absolute Monocytes (0.10 - 0.60 /CUMM) 0.6 Absolute Eosinophils (0.0 - 0.7 /CUMM) 0 Absolute Basophils (0.0 - 0.2 /CUMM) 0 PUBS MCHC (33.0 - 37.0 G/DL) 33.4 A/P; 71-year-old female with no known significant past history admitted with acute hypoxemic respiratory failure likely secondary to acute bronchitis and COPD exacerbation. ECHO is ordered. Can decrease the steroid to every 12 today. Continue azithromycin. Continue TRC nebs. Will check sputum culture. We'll try to taper her oxygen. Please follow-up on ECHO. DVT px; Lovenox.
[2017-04-06 08:46] LABS: ABSOLUTE BASOPHIL COUNT 0 /CUMM (0.0-0.2); ABSOLUTE EOSINOPHIL COUNT 0 /CUMM (0.0-0.7); ABSOLUTE GRANULOCYTE CT 8.2 /CUMM (1.4-6.5); ABSOLUTE MONOCYTE COUNT 0.6 /CUMM (0.10-0.60); BASOPHIL % 0 % (0.0-2.0); EOSINOPHIL % 0 % (0-5); HEMATOCRIT 35.9 % (37-47); MEAN CORPUSCULAR HGB 30.3 PG (27.0-31.0); MEAN CORPUSCULAR HGB CONC 33.4 G/DL (33.0-37.0); MEAN CORPUSCULAR VOLUME 90.7 FL (81.0-99.0); MEAN PLATELET VOLUME 9.2 FL (7.4-10.4); PLATELET COUNT 186 /CUMM (130-400); RBC DISTRIBUTION WIDTH 13.3 % (11.5-14.5); RED BLOOD CELL CT 3.96 /CUMM (4.20-5.40); WHITE BLOOD CELL COUNT 9.8 /CUMM (4.8-10.8)
[2017-04-06 09:57] LABS: GRANULOCYTE % 83.7 % (42.2-75.2)
--- NOTE | 2017-04-06 13:08 | ECHOCARDIOGRAM REPORT ---
SAAD REEVES Age: 71 : 1945 Gender: F Exam Date: 04/05/2017 15:39 Exam Location: ER Ht (in): 65 Wt (lb): 194 BSA: 2.04 BP: 125 / 60 Ordering Physician: Sole Smith MD Referring Physician: Sole Smith MD Technologist: Ibeth Rooney RDCS Room Number: [id number] Indications: CARDIOMYOPATHY Rhythm: Sinus Technical Quality: Fair FINDINGS Left Ventricle Normal size left ventricle. Mild concentric left ventricular hypertrophy. Normal left ventricular ejection fraction visually estimated at >60%. Normal left ventricular wall motion. Normal left ventricular diastolic filling pattern for age. Right Ventricle Normal right ventricular size and function. Right Atrium Normal right atrial size. Left Atrium Mild left atrial dilatation. Mitral Valve Mild mitral annular calcification. Trace mitral regurgitation. Aortic Valve Aortic valve mildly thickened. No aortic regurgitation. No aortic stenosis. Tricuspid Valve Tricuspid valve not well visualized, grossly normal. Trace tricuspid regurgitation. No evidence of pulmonary hypertension. Pulmonic Valve Pulmonic valve not well visualized, grossly normal. Trace pulmonic regurgitation. Pericardium No pericardial effusion. Great Vessels Normal size aortic root. CONCLUSIONS Normal size left ventricle. Mild concentric left ventricular hypertrophy. Normal left ventricular ejection fraction visually estimated at > 60%. Mild left atrial dilatation. Trace mitral regurgitation. Trace tricuspid regurgitation. Trace pulmonic regurgitation. Fernando Gonzalez M.D. (Electronically Signed) Final Date: 06 April 2017 13:07 MEASUREMENTS (Male / Female) Normal Values 2D ECHO LV Diastolic Diameter PLAX 3.9 cm 4.2 - 5.9 / 3.9 - 5.3 cm LV Systolic Diameter PLAX 2.1 cm 2.1 - 4.0 cm LV Fractional Shortening PLAX 46.2 % 25 - 46 % LV Ejection Fraction 2D Teich 78.1 % IVS Diastolic Thickness 1.4 cm LVPW Diastolic Thickness 1.3 cm LV Relative Wall Thickness 0.7 RV Internal Dim ED PLAX 2.9 cm 1.9 - 3.8 cm LVOT Diameter 2.0 cm Aortic Root Diameter 3.2 cm LA Systolic Diameter LX 4.2 cm 3.0 - 4.0 / 2.7 - 3.8 cm LA Volume 32.0 cm 18 - 58 / 22 - 52 cm Ascending Aorta Diameter 3.1 cm DOPPLER AV Peak Velocity 158.0 cm/s AV Peak Gradient 10.0 mmHg AV Mean Velocity 96.3 cm/s AV Mean Gradient 4.0 mmHg AV Velocity Time Integral 34.9 cm LVOT Peak Velocity 132.0 cm/s LVOT Peak Gradient 7.0 mmHg LVOT Mean Velocity 83.8 cm/s LVOT Mean Gradient 3.0 mmHg LVOT Velocity Time Integral 30.5 cm LVOT Stroke Volume 95.8 cm AV Area Cont Eq vti 2.7 cm AV Area Cont Eq pk 2.6 cm MV Peak Velocity 100.0 cm/s MV Peak Gradient 4.0 mmHg MV Mean Velocity 48.4 cm/s MV Mean Gradient 1.0 mmHg Mitral E Point Velocity 73.1 cm/s Mitral A Point Velocity 73.1 cm/s Mitral E to A Ratio 1.0 MV PHT Velocity 109.0 cm/s MV Deceleration [place] 657.0 cm/s MV Pressure Half Time 49.8 ms MV Area PHT 4.4 cm MV Deceleration Time 257.0 ms TR Peak Velocity 276.0 cm/s TR Peak Gradient 30.5 mmHg Right Atrial Pressure 5.0 mmHg Pulmonary Artery Systolic Pressu 35.5 mmHg Right Ventricular Systolic Press 35.5 mmHg PV Peak Velocity 105.0 cm/s PV Peak Gradient 4.4 mmHg PV Mean Velocity 74.9 cm/s PV Mean Gradient 3.0 mmHg PV Velocity Time Integral 27.4 cm LV E' Lateral Velocity 9.7 cm/s Mitral E to LV E' Lateral Ratio 7.6 LV E' Septal Velocity 8.1 cm/s Mitral E to LV E' Septal Ratio 9.0
[2017-04-06 15:33] VITALS: BP 118/60
[2017-04-06 22:20] VITALS: BP 122/60
[2017-04-07 06:54] VITALS: BP 134/78
--- NOTE | 2017-04-07 07:29 | PN- Housestaff ---
Bethanie Roberts 04/07/17 0729: Subjective Follow-up For: COPD exacerbation Acute bronchitis Complaints: no complaints Subjective: Patient was seen and examined this morning. She was sitting comfortably without any complaints. Today she is able to talk in full sentences but still get short of breath with talking. She remained afebrile and hemodynamically stable Review of Systems Constitutional: Denies: chills, diaphoresis. Cardiovascular: Denies: edema, orthopena. Respiratory: Reports: short of breath, wheezing. Gastrointestinal: Denies: diarrhea, distention. Genitourinary: Denies: dysuria, hesitation. Musculoskeletal: Denies: joint pain, joint swelling. Objective Last 24 Hrs of Vital Signs/I&O Vital Signs Date Time Temp Pulse Resp B/P B/P Pulse O2 O2 Flow FiO2 Mean Ox Delivery Rate 04/07 1324 18 92 Room Air 04/07 1118 18 94 Room Air 04/07 1115 18 94 Nasal 1.0L Cannula 04/07 1057 18 95 Nasal 2.0L Cannula 04/07 0805 94 Nasal 2.0L Cannula 04/07 0800 95 Nasal 2.0L Cannula 04/07 0654 97.9 72 22 134/78 94 Nasal 1.0L Cannula 04/07 0000 Nasal 2.5L Cannula 04/06 2220 97.6 92 22 122/60 94 Nasal Cannula 04/06 1625 97 Nasal 2.5L Cannula 04/06 1600 Nasal 2.5L Cannula 04/06 1533 98.3 70 22 118/60 95 Intake & Output 04/07 1600 04/07 0800 04/07 0000 Intake Total 500 240 150 Output Total Balance 500 240 150 Intake, IV 10 Intake, Oral 500 240 140 Physical Exam General Appearance: Alert, Oriented X3, Cooperative, No Acute Distress Cardiovascular: Regular Rate, Normal S1, Normal S2, No Murmurs Lungs: slight wheezing and mildly reduced air entry Abdomen: Normal Bowel Sounds, Soft Current Medications: Current Medications Sig/Jose Roberto Start time Last Medication Dose Route Stop Time Status Admin Acetaminophen 1,000 MG Q6P PRN 04/04 2300 AC N/A 1 UNIT IV Acetaminophen 650 MG Q6P PRN 04/04 2245 AC PO Albuterol Sulfate 3 ML EVERY 4 HRS/AWAKE 04/05 1999 AC 04/07 INH 1131 Azithromycin 500 MG DAILY 04/04 2345 AC 04/07 Sodium Chloride 250 ML IV 1048 Enoxaparin Sodium 40 MG DAILY 04/05 1000 AC 04/07 SC 1047 Guaifenesin 600 MG Q12 04/04 2345 AC 04/07 PO 1048 Ipratropium [place] 2.5 ML EVERY 4 HRS/AWAKE 04/05 1999 AC 04/07 INH 1131 Methylprednisolone 40 MG Q12 04/06 2200 AC 04/07 IV 1048 Oxycodone HCl 5 MG Q6P PRN 04/04 2300 AC PO Last 24 Hrs of Lab/Abel Results Last 24 Hrs of Labs/Mics: Laboratory Tests 04/07/17 0712: Anion Gap 12, Estimated GFR > 60, BUN/Creatinine Ratio 34.3 H, CBC w Diff NO MAN DIFF REQ, RBC 3.86 L, MCV 91.1, MCH 30.2, RDW 13.4, MPV 9.4, Gran % 76.8 H , Lymphocytes % 15.5 L, Monocytes % 7.4, Eosinophils % 0, Basophils % 0.3, Absolute Granulocytes 6.5, Absolute Lymphocytes 1.3, Absolute Monocytes 0.6, Absolute Eosinophils 0, Absolute Basophils 0, PUBS MCHC 33.2 Assessment/Plan Assessment: Patient is 71-year-old female current smoker with past medical history significant for prediabetes came in with chief complaint of worsening shortness of breath which could be due to undiagnosed COPD exacerbation/acute bronchitis. Patient was admitted on general medical floor and we will address following problems Problem #1 acute hypoxic respiratory failure likely due to undiagnosed COPD exacerbation/bronchitis. * Patient has significant relief and her symptoms after IV Solu-Medrol. We will continue IV Solu-Medrol for 2 more days * We will continue azithromycin for its anti-inflammatory benefits And she will complete 5 days. * Her sodium is still on the higher side we will encourage her to take fluids. * Supplemental oxygen to keep oxygen saturation more than 90%. * TRC and nebulization * patient is a possible discharge and began and we will send her home on tapering course of steroid and inhibitors. Pharmacological DVT prophylaxis Regular diet Patient is full code Problem List: 1. Hypoxia 2. Dyspnea Pain Ratin Pain Location: Not applicable Pain Goal: Remain pain free Pain Plan: Tylenol Tomorrow's Labs & Rationales: CbC and basic electrolyte panel Edgar PIERRE,Chayito 04/07/17 1105: Attending MD Review Statement Attending Statement Attending MD Statement: examined this patient, discuss w/resident/PA/PACK TRAIN DRIVER, agreed w/resident/PA/PACK TRAIN DRIVER, reviewed EMR data (avail), discussed with nursing, discussed with case mgmt, reviewed images, amended to note Attending Assessment/Plan: Patient seen and examined, improving slowly. Overall improved but still feeling somewhat short of breath and requiring oxygen. Remains on IV steroids. Vital Signs Date Time Temp Pulse Resp B/P B/P Pulse O2 O2 Flow FiO2 Mean Ox Delivery Rate 04/07 1057 18 95 Nasal 2.0L Cannula 04/07 0805 94 Nasal 2.0L Cannula 04/07 0654 97.9 72 22 134/78 94 Nasal 1.0L Cannula 04/07 0000 Nasal 2.5L Cannula 04/06 2220 97.6 92 22 122/60 94 Nasal Cannula 04/06 1625 97 Nasal 2.5L Cannula 04/06 1600 Nasal 2.5L Cannula 04/06 1533 98.3 70 22 118/60 95 04/06 1148 97.4 on exam; aox3, nad. cv; s1, s2, rrr resp; mild scattered wheeze b/l abd; soft, nt, bs+ ext; no edema. ECHO results reviewed. Laboratory Tests 04/07 0712 Chemistry Sodium (137 - 145 mmol/L) 147 H Potassium (3.5 - 5.1 mmol/L) 4.9 Chloride (98 - 107 mmol/L) 110 H Carbon Dioxide (22 - 30 mmol/L) 25 Anion Gap (5 - 16) 12 BUN (7 - 17 mg/dL) 24 H Creatinine (0.5 - 1.0 mg/dL) 0.7 Estimated GFR (>60 ml/min) > 60 BUN/Creatinine Ratio (7 - 25 %) 34.3 H Hematology CBC w Diff NO MAN DIFF REQ WBC (4.8 - 10.8 /CUMM) 8.5 RBC (4.20 - 5.40 /CUMM) 3.86 L Hgb (12.0 - 16.0 G/DL) 11.7 L Hct (37 - 47 %) 35.2 L MCV (81.0 - 99.0 FL) 91.1 MCH (27.0 - 31.0 PG) 30.2 RDW (11.5 - 14.5 %) 13.4 Plt Count (130 - 400 /CUMM) 188 MPV (7.4 - 10.4 FL) 9.4 Gran % (42.2 - 75.2 %) 76.8 H Lymphocytes % (20.5 - 51.1 %) 15.5 L Monocytes % (1.7 - 9.3 %) 7.4 Eosinophils % (0 - 5 %) 0 Basophils % (0.0 - 2.0 %) 0.3 Absolute Granulocytes (1.4 - 6.5 /CUMM) 6.5 Absolute Lymphocytes (1.2 - 3.4 /CUMM) 1.3 Absolute Monocytes (0.10 - 0.60 /CUMM) 0.6 Absolute Eosinophils (0.0 - 0.7 /CUMM) 0 Absolute Basophils (0.0 - 0.2 /CUMM) 0 PUBS MCHC (33.0 - 37.0 G/DL) 33.2 A/P; 71-year-old female with no known significant past history admitted with acute hypoxemic respiratory failure likely secondary to acute bronchitis and COPD exacerbation. Continue IV steroids at present dose today. Patient is completing the course of azithromycin. We'll switch her nebulizer to inhaler so that she can also use the inhaler technique. She will need to be discharged on inhalers. Patient will need an outpatient follow-up with pulmonology. If she continues to improve that she could be a possible discharge possibly this Monday. Encourage PO fluids for mild hypernat. DVT px; Lovenox. Encourage ambulation.
[2017-04-07 08:44] LABS: ABSOLUTE BASOPHIL COUNT 0 /CUMM (0.0-0.2); ABSOLUTE EOSINOPHIL COUNT 0 /CUMM (0.0-0.7); ABSOLUTE GRANULOCYTE CT 6.5 /CUMM (1.4-6.5); ABSOLUTE LYMPH COUNT 1.3 /CUMM (1.2-3.4); ABSOLUTE MONOCYTE COUNT 0.6 /CUMM (0.10-0.60); BASOPHIL % 0.3 % (0.0-2.0); EOSINOPHIL % 0 % (0-5); GRANULOCYTE % 76.8 % (42.2-75.2); HEMATOCRIT 35.2 % (37-47); MEAN CORPUSCULAR HGB 30.2 PG (27.0-31.0); MEAN CORPUSCULAR HGB CONC 33.2 G/DL (33.0-37.0); MEAN CORPUSCULAR VOLUME 91.1 FL (81.0-99.0); MEAN PLATELET VOLUME 9.4 FL (7.4-10.4); PLATELET COUNT 188 /CUMM (130-400); RBC DISTRIBUTION WIDTH 13.4 % (11.5-14.5); RED BLOOD CELL CT 3.86 /CUMM (4.20-5.40); WHITE BLOOD CELL COUNT 8.5 /CUMM (4.8-10.8)
[2017-04-07] MEDS ORDERED: GUAIFENESIN ER600 MG PO (10:06)
[2017-04-07] MEDS ORDERED: PREDNISONE10 M2 PO (10:06)
[2017-04-07] MEDS ORDERED: SYMBICORT 16010.2 GM INH (10:06)
[2017-04-07] MEDS ORDERED: PROAIR HFA8.5 GM INH (10:06)
[2017-04-07] MEDS ORDERED: SPIRIVA18 MCG INH (10:06)
--- NOTE | 2017-04-07 10:08 | Patient Discharge Instructions ---
Discharge Instructions General Discharge Information You were seen/treated for: COPD EXACERBATION Special Instructions: PLEASE FOLLOW UP WITH YOUR PCP IN A WEEK PLEASE TAKE MEDICATIONS INSTRUCTED PLEASE FOLLOW UP WITH [facility] IN 2 WEEKS Diet Recommended Diet: Heart Healthy Activity Additional ACTIVITY Info: TOLERATED Acute Coronary Syndrome Inclusion Criteria At DC or during hospital stay patient has or had the following: ACS DIAGNOSIS No Discharge Core Measures Meds if any: Prescribed or Continued at Discharge Meds if any: NOT Prescribed or Continued at Discharge Congestive Heart Failure Inclusion Criteria At DC or during hospital stay patient has or had the following: CHF DIAGNOSIS No Discharge Core Measures Meds if any: Prescribed or Continued at Discharge Meds if any: NOT Prescribed or Continued at Discharge Cerebrovascular accident Inclusion Criteria At DC or during hospital stay patient has or had the following: CVA/TIA Diagnosis No Discharge Core Measures Meds if any: Prescribed or Continued at Discharge Meds if any: NOT Prescribed or Continued at Discharge Venous thromboembolism Inclusion Criteria VTE Diagnosis No VTE Type NONE VTE Confirmed by (Test) NONE Discharge Core Measures - Per Current guidelines, there needs to be overlap - treatment for the first 5 days of Warfarin therapy. - If discharged on Warfarin prior to 5 days of - overlap therapy, the patient will need to be - assessed for post discharge needs including - *Post discharge parental anticoagulation - *Warfarin and/or parental anticoagulation education - *Follow up date to check INR post discharge At least 5 days overlap therapy as Inpatient No Meds if any: Prescribed or Continued at Discharge Note: Overlap Therapy is Warfarin and Anticoagulant Meds if any: NOT Prescribed or Continued at Discharge
[2017-04-07 14:57] VITALS: BP 130/70
[2017-04-07 22:05] VITALS: BP 134/80
[2017-04-08 07:19] VITALS: BP 132/74
--- NOTE | 2017-04-08 07:55 | PN- Housestaff ---
Ladarius Adame 04/08/17 0750: Subjective Follow-up For: COPD exacerbation Acute bronchitis Subjective: Patient was seen and examined this morning. She was sitting comfortably without any complaints. no acute events overnight She remained afebrile and hemodynamically stable Denies any chest pain, palpitations, fever, cough, chills. Reports mild shortness of breath on exertion. Vitals stable Requiring 1 L oxygen supplementation Review of Systems Constitutional: Reports: see HPI. Objective Last 24 Hrs of Vital Signs/I&O Vital Signs Date Time Temp Pulse Resp B/P B/P Pulse O2 O2 Flow FiO2 Mean Ox Delivery Rate 04/08 0719 97.9 68 20 132/74 95 Nasal 1.0L Cannula 04/08 0000 94 Nasal 1.0L Cannula 04/07 2205 97.7 72 20 134/80 94 04/07 1640 92 Nasal 1.0L Cannula 04/07 1457 98.0 72 22 130/70 93 04/07 1324 18 92 Room Air 04/07 1118 18 94 Room Air 04/07 1115 18 94 Nasal 1.0L Cannula 04/07 1057 18 95 Nasal 2.0L Cannula 04/07 0805 94 Nasal 2.0L Cannula 04/07 0800 95 Nasal 2.0L Cannula Intake & Output 04/08 0800 04/08 0000 04/07 1600 Intake Total 240 1150 Output Total 200 Balance 240 950 Intake, IV 250 Intake, Oral 240 900 Output, Urine 200 Physical Exam General Appearance: Alert, Oriented X3, Cooperative, No Acute Distress Other Physical Findings: Cardiovascular: Regular Rate, Normal S1, Normal S2, No Murmurs Lungs: slight wheezing and mildly reduced air entry Abdomen: Normal Bowel Sounds, Soft Current Medications: Current Medications Sig/Jose Roberto Start time Last Medication Dose Route Stop Time Status Admin Acetaminophen 1,000 MG Q6P PRN 04/04 2300 AC N/A 1 UNIT IV Acetaminophen 650 MG Q6P PRN 04/04 2245 AC PO Albuterol Sulfate 3 ML EVERY 4 HRS/AWAKE 04/05 1999 AC 04/07 INH 2002 Azithromycin 500 MG DAILY 04/08 1000 AC Dextrose/Water 250 ML IV Azithromycin 500 MG DAILY 04/04 2345 DC 04/07 Sodium Chloride 250 ML IV 1048 Enoxaparin Sodium 40 MG DAILY 04/05 1000 AC 04/07 SC 1047 Guaifenesin 600 MG Q12 04/04 2345 AC 04/07 PO 2146 Ipratropium [place] 2.5 ML EVERY 4 HRS/AWAKE 04/05 1999 AC 04/07 INH 2002 Methylprednisolone 40 MG Q12 04/06 2200 AC 04/07 IV 2146 Oxycodone HCl 5 MG Q6P PRN 04/04 2300 AC PO Last 24 Hrs of Lab/Abel Results Last 24 Hrs of Labs/Mics: Laboratory Tests 04/08/17 0657: Sodium Pending, Potassium Pending, Chloride Pending, Carbon Dioxide Pending, Anion Gap Pending, BUN Pending, Creatinine Pending, BUN/Creatinine Ratio Pending , CBC w Diff Pending, WBC Pending, RBC Pending, Hgb Pending, Hct Pending, MCV Pending, MCH Pending, RDW Pending, Plt Count Pending, MPV Pending, PUBS MCHC Pending Assessment/Plan Assessment: Patient is 71-year-old female current smoker with past medical history significant for prediabetes came in with chief complaint of worsening shortness of breath which could be due to undiagnosed COPD exacerbation/acute bronchitis. Patient was admitted on general medical floor and we will address following problems. Problem #1 acute hypoxic respiratory failure likely due to undiagnosed COPD exacerbation/bronchitis. * Patient has significant relief of her symptoms after IV Solu-Medrol. * We will continue IV Solu-Medrol q12 today and q24 tommorow * We will continue azithromycin for its anti-inflammatory benefits- day 4 And she will complete 5 days. * Her sodium is still on the higher side we will encourage her to take fluids. * Supplemental oxygen to keep oxygen saturation more than 90%. * TRC and nebulization * patient is a possible discharge tmr * we will send her home on tapering course of steroid and inhibitors. Pharmacological DVT prophylaxis Regular diet Patient is full code Problem List: 1. Bronchitis Pain Ratin Pain Location: n/a Pain Goal: Remain pain free Pain Plan: tylniol Tomorrow's Labs & Rationales: cbc Kumar Shepherd 04/08/17 1253: Attending MD Review Statement Attending Statement Attending MD Statement: examined this patient, discuss w/resident/PA/SURVEY ANALYST, agreed w/resident/PA/SURVEY ANALYST, discussed with family, reviewed EMR data (avail), discussed with nursing, discussed with case mgmt, reviewed images, amended to note Attending Assessment/Plan: Patient seen/examined bedside. Patient denies any new complaints. Patient is on taper steroids, abx and inhaler therapy. Patient is requiring oxygen supplementation with mild use of accessory muscles. Patient hemodynamicaly stable. Cont current care and anticipate dc soon.
[2017-04-08 08:33] LABS: ABSOLUTE BASOPHIL COUNT 0 /CUMM (0.0-0.2); ABSOLUTE EOSINOPHIL COUNT 0 /CUMM (0.0-0.7); ABSOLUTE GRANULOCYTE CT 5.2 /CUMM (1.4-6.5); ABSOLUTE LYMPH COUNT 1.2 /CUMM (1.2-3.4); ABSOLUTE MONOCYTE COUNT 0.6 /CUMM (0.10-0.60); BASOPHIL % 0.4 % (0.0-2.0); EOSINOPHIL % 0 % (0-5); GRANULOCYTE % 74.5 % (42.2-75.2); HEMATOCRIT 34.4 % (37-47); MEAN CORPUSCULAR HGB 30.5 PG (27.0-31.0); MEAN CORPUSCULAR HGB CONC 33.5 G/DL (33.0-37.0); MEAN CORPUSCULAR VOLUME 91.3 FL (81.0-99.0); MEAN PLATELET VOLUME 9.1 FL (7.4-10.4); PLATELET COUNT 193 /CUMM (130-400); RBC DISTRIBUTION WIDTH 13.6 % (11.5-14.5); RED BLOOD CELL CT 3.76 /CUMM (4.20-5.40)
[2017-04-08 14:54] VITALS: BP 130/80
[2017-04-08 22:00] VITALS: BP 130/62
[2017-04-09 06:58] VITALS: BP 142/68
[2017-04-09 09:14] LABS: ABSOLUTE BASOPHIL COUNT 0 /CUMM (0.0-0.2); ABSOLUTE EOSINOPHIL COUNT 0 /CUMM (0.0-0.7); ABSOLUTE GRANULOCYTE CT 6.1 /CUMM (1.4-6.5); ABSOLUTE LYMPH COUNT 1.8 /CUMM (1.2-3.4); ABSOLUTE MONOCYTE COUNT 0.6 /CUMM (0.10-0.60); BASOPHIL % 0.3 % (0.0-2.0); EOSINOPHIL % 0 % (0-5); GRANULOCYTE % 71.1 % (42.2-75.2); HEMATOCRIT 37.3 % (37-47); MEAN CORPUSCULAR HGB 30.1 PG (27.0-31.0); MEAN CORPUSCULAR HGB CONC 33.3 G/DL (33.0-37.0); MEAN CORPUSCULAR VOLUME 90.4 FL (81.0-99.0); PLATELET COUNT 226 /CUMM (130-400); RBC DISTRIBUTION WIDTH 13.5 % (11.5-14.5); RED BLOOD CELL CT 4.13 /CUMM (4.20-5.40); WHITE BLOOD CELL COUNT 8.6 /CUMM (4.8-10.8)
--- NOTE | 2017-04-09 09:25 | PN- Housestaff ---
See Addendum Subjective Follow-up For: COPD exacerbation Subjective: Patient was seen and examined today. Patient alert, awake, oriented 3. Patient stated that her breathing status slightly improve comparing with the date of admission but she still complaining off expiratory wheezing, mild shortness of breath and feeling anxious. Patient currently in the room air with oxygen saturation more than 91%, afebrile, blood pressure within acceptable limit. Review of Systems Constitutional: Denies: chills, fever, weakness. Cardiovascular: Denies: chest pain, palpitations. Respiratory: Reports: short of breath, wheezing. Denies: cough. Gastrointestinal: Denies: abdominal pain, diarrhea, nausea, vomiting. Genitourinary: Denies: pain. Objective Last 24 Hrs of Vital Signs/I&O Vital Signs Date Time Temp Pulse Resp B/P B/P Pulse O2 O2 Flow FiO2 Mean Ox Delivery Rate 04/09 0902 92 Room Air Room Air 04/09 0658 98.1 60 22 142/68 98 Nasal 1.0L Cannula 04/09 0000 94 Nasal 1.0L Cannula 04/08 2200 98.7 76 20 130/62 94 Nasal 1.0L Cannula 04/08 2141 93 Nasal 1.0L Cannula 04/08 1600 Nasal 1.0L Cannula 04/08 1551 93 Nasal 1.0L Cannula 04/08 1454 97.7 88 20 130/80 95 Intake & Output 04/09 1600 04/09 0800 04/09 0000 Intake Total 240 900 Output Total Balance 240 900 Intake, IV 0 Intake, Oral 240 900 Number 0 Bowel Movements Patient 199 lb Weight Physical Exam General Appearance: Alert, Oriented X3, Cooperative, No Acute Distress HEENT: PERRLA, EOMI Neck: Supple Cardiovascular: Normal S1, Normal S2 Lungs: Normal Air Movement, bilateral scattered expiratory wheezing Abdomen: Normal Bowel Sounds, Soft, No Tenderness Extremities: No Edema, Normal Pulses Current Medications: Current Medications Sig/Jose Roberto Start time Last Medication Dose Route Stop Time Status Admin Acetaminophen 1,000 MG Q6P PRN 04/04 2300 AC N/A 1 UNIT IV Acetaminophen 650 MG Q6P PRN 04/04 2245 AC PO Albuterol Sulfate 3 ML EVERY 4 HRS/AWAKE 04/05 1999 AC 04/09 INH 0859 Azithromycin 500 MG DAILY 04/08 1000 AC 04/09 Dextrose/Water 250 ML IV 0818 Enoxaparin Sodium 40 MG DAILY 04/05 1000 AC 04/09 SC 1018 Guaifenesin 600 MG Q12 04/04 2345 AC 04/09 PO 0818 Ipratropium [place] 2.5 ML EVERY 4 HRS/AWAKE 04/05 2000 AC 04/09 INH 0859 Methylprednisolone 40 MG Q12 04/06 2200 AC 04/09 IV 0825 Oxycodone HCl 5 MG Q6P PRN 04/04 2300 AC PO Last 24 Hrs of Lab/Abel Results Last 24 Hrs of Labs/Mics: Laboratory Tests 04/09/17 0810: Anion Gap 13, Estimated GFR > 60, BUN/Creatinine Ratio 31.3 H, CBC w Diff NO MAN DIFF REQ, RBC 4.13 L, MCV 90.4, MCH 30.1, RDW 13.5, MPV 9.0, Gran % 71.1, Lymphocytes % 21.4, Monocytes % 7.2, Eosinophils % 0, Basophils % 0.3, Absolute Granulocytes 6.1, Absolute Lymphocytes 1.8, Absolute Monocytes 0.6, Absolute Eosinophils 0, Absolute Basophils 0, PUBS MCHC 33.3 Assessment/Plan Assessment: Patient is 71-year-old female current smoker with past medical history significant for prediabetes came in with chief complaint of worsening shortness of breath which could be due to undiagnosed COPD exacerbation/acute bronchitis. Patient was admitted on general medical floor and we will address following problems. Problem #1 acute hypoxic respiratory failure likely due to undiagnosed COPD exacerbation/bronchitis. * We will continue IV Solu-Medrol q12 today and change it to prednisone tomorrow 60 mg and she will continue slow taper giving the patient taking long time. Portocaval * We will continue azithromycin for its anti-inflammatory benefits- day 5 today will be the last dose. * Ambulate the patient and check her oxygen saturation off O2. * Her sodium is still on the higher side we will encourage her to take fluids. * Supplemental oxygen to keep oxygen saturation more than 90%. * TRC and nebulization * patient is a possible discharge tomorrow Pharmacological DVT prophylaxis Regular diet Patient is full code Problem List: 1. Hypoxia Pain Ratin Pain Location: 0 Pain Goal: Remain pain free Pain Plan: same Tomorrow's Labs & Rationales: none
[2017-04-09 14:03] VITALS: BP 140/60
[2017-04-09 22:25] VITALS: BP 138/70
[2017-04-10 06:53] VITALS: BP 126/70
--- NOTE | 2017-04-10 07:51 | PN- Housestaff ---
Bethanie Roberts 04/10/17 0751: Subjective Follow-up For: COPD exacerbation Complaints: no complaints Subjective: Patient was seen and examined this morning. She was sitting comfortably in bed and breathing better than before. She is able to complete sentences without getting much short of breath. We will send her home on tapering dose of prednisone and she will follow up with marine extension agent as outpatient. Review of Systems Constitutional: Denies: diaphoresis, fever, malaise. Respiratory: Reports: short of breath. Gastrointestinal: Denies: bloating, distention. Genitourinary: Denies: dysuria, hematuria. Musculoskeletal: Denies: joint swelling, muscle pain. Objective Last 24 Hrs of Vital Signs/I&O Vital Signs Date Time Temp Pulse Resp B/P B/P Pulse O2 O2 Flow FiO2 Mean Ox Delivery Rate 04/10 0807 92 Room Air Room Air 04/10 0800 93 Room Air 04/10 0653 97.9 70 20 126/70 93 04/10 0000 92 Room Air 04/09 2225 98.1 82 20 138/70 92 Room Air 04/09 1639 92 Room Air 04/09 1600 92 Room Air 04/09 1403 97.8 80 18 140/60 92 Room Air Intake & Output 04/10 1600 04/10 0800 04/10 0000 Intake Total 500 0 400 Output Total Balance 500 0 400 Intake, IV 0 Intake, Oral 500 0 400 Number 1 0 Bowel Movements Physical Exam General Appearance: Alert, Oriented X3, Cooperative, No Acute Distress Cardiovascular: Regular Rate, Normal S1, Normal S2, No Murmurs Lungs: Normal Air Movement Abdomen: Soft, No Hepatospenomegaly Neurological: Normal Speech, Strength at 5/5 X4 Ext Extremities: No Clubbing, No Cyanosis, No Edema Current Medications: Current Medications Sig/Jose Roberto Start time Last Medication Dose Route Stop Time Status Admin Acetaminophen 1,000 MG Q6P PRN 04/04 2300 DCD N/A 1 UNIT IV Acetaminophen 650 MG Q6P PRN 04/04 2245 DCD PO Albuterol Sulfate 3 ML EVERY 4 HRS/AWAKE 04/05 2000 DCD 04/10 INH 0804 Azithromycin 500 MG DAILY 04/08 1000 DC 04/09 Dextrose/Water 250 ML IV 04/10 0000 0818 Enoxaparin Sodium 40 MG DAILY 04/05 1000 DCD 04/10 SC 0907 Guaifenesin 600 MG Q12 04/04 2345 DCD 04/10 PO 0907 Ipratropium [place] 2.5 ML EVERY 4 HRS/AWAKE 04/05 1999 DCD 04/10 INH 0804 Methylprednisolone 40 MG Q12 04/06 2199 DCD 04/10 IV 0907 Oxycodone HCl 5 MG Q6P PRN 04/04 2300 DCD PO Last 24 Hrs of Lab/Abel Results Last 24 Hrs of Labs/Mics: Laboratory Tests 04/10/17 0925: Anion Gap 14, Estimated GFR > 60, BUN/Creatinine Ratio 28.8 H, CBC w Diff NO MAN DIFF REQ, RBC 4.28, MCV 90.9, MCH 30.2, RDW 13.5, MPV 9.2, Gran % 63.0, Lymphocytes % 29.4, Monocytes % 7.1, Eosinophils % 0.1, Basophils % 0.4, Absolute Granulocytes 6.0, Absolute Lymphocytes 2.8, Absolute Monocytes 0.7 H, Absolute Eosinophils 0, Absolute Basophils 0, PUBS MCHC 33.3 Assessment/Plan Assessment: Patient is 71-year-old female current smoker with past medical history significant for prediabetes came in with chief complaint of worsening shortness of breath which could be due to undiagnosed COPD exacerbation/acute bronchitis. Patient was admitted on general medical floor and we will address following problems. Problem #1 acute hypoxic respiratory failure likely due to undiagnosed COPD exacerbation/bronchitis. * Patient is doing better progressively and on ambulation her oxygen saturation is 93%. She is stable enough to go home on tapering dose of prednisone. She completed a course of azithromycin. Patient is instructed to follow-up with pulmonology in 2 weeks of discharge. We will send her home on bronchodilator inhalers. Pharmacological DVT prophylaxis Regular diet Patient is full code Problem List: 1. COPD exacerbation 2. Bronchitis Pain Ratin Pain Location: na Pain Goal: Remain pain free Pain Plan: tylenol Tomorrow's Labs & Rationales: none Chayito Hernández MD 04/10/17 1144: Attending MD Review Statement Attending Statement Attending MD Statement: examined this patient, discuss w/resident/PA/CARGO INSPECTOR, agreed w/resident/PA/CARGO INSPECTOR, reviewed EMR data (avail), discussed with nursing, discussed with case mgmt, reviewed images, amended to note Attending Assessment/Plan: Patient seen and examined, overall doing much better. She is now on room air. Repeat O2 sat was 93% on room air. Patient can be switched to oral steroids and she is otherwise medically stable for discharge. She will be discharged home on prednisone taper. She will also be given the prescriptions for all the inhalers. Patient should follow-up with her primary care doctor and she will be referred to marine extension agent.
[2017-04-10 10:30] LABS: ABSOLUTE BASOPHIL COUNT 0 /CUMM (0.0-0.2); ABSOLUTE EOSINOPHIL COUNT 0 /CUMM (0.0-0.7); ABSOLUTE LYMPH COUNT 2.8 /CUMM (1.2-3.4); ABSOLUTE MONOCYTE COUNT 0.7 /CUMM (0.10-0.60); BASOPHIL % 0.4 % (0.0-2.0); EOSINOPHIL % 0.1 % (0-5); HEMATOCRIT 38.9 % (37-47); MEAN CORPUSCULAR HGB 30.2 PG (27.0-31.0); MEAN CORPUSCULAR HGB CONC 33.3 G/DL (33.0-37.0); MEAN CORPUSCULAR VOLUME 90.9 FL (81.0-99.0); MEAN PLATELET VOLUME 9.2 FL (7.4-10.4); PLATELET COUNT 225 /CUMM (130-400); RBC DISTRIBUTION WIDTH 13.5 % (11.5-14.5); RED BLOOD CELL CT 4.28 /CUMM (4.20-5.40); WHITE BLOOD CELL COUNT 9.5 /CUMM (4.8-10.8)
[2017-04-10] MEDS ORDERED: PROAIR HFA8.5 GM INH (10:33)
[2017-04-10] MEDS ORDERED: SYMBICORT 16010.2 GM INH (10:33)
[2017-04-10] MEDS ORDERED: PREDNISONE10 M2 PO (10:33)
[2017-04-10] MEDS ORDERED: SPIRIVA18 MCG INH (10:33)
[2017-04-10] MEDS ORDERED: GUAIFENESIN ER600 MG PO (10:33)
--- NOTE | 2017-04-10 13:38 | Discharge Summary ---
Visit Information Visit Dates Admission Date: 04/04/17 Discharge Date: 04/10/17 Hospital Course Course Attending Physician: Chayito Hernández MD [facility] Course: Patient is 71-year-old female with no significant past medical history other than prediabetes. She is presenting to [place] ED on 04/04 with complaint of shortness of breath. Patient was admitted on general medical floor and was started on azithromycin for its anti-inflammatory benefits. She was started initially on IV steroids and we tapered it according to her respiratory status and she was also provided with supplemental oxygen. She was doing better progressively on TRC, nebulization, azithromycin and IV Solu-Medrol. She was also kept on supplemental oxygen to keep oxygen saturation more than 90%. Subsequently she was off of oxygen and saturating fine on room air. We would discharge her home on tapering course of oral prednisone, bronchodilator inhalers and she would be instructed to follow-up with primary care physician and grove superintendent in 1-2 weeks of discharge. She would eventually need pulmonary function test to diagnose her underlying COPD which she was never been diagnosed with. Complications: None Allergies: Coded Allergies: amoxicillin (HIVES 04/04/17) Significant Procedures: SAAD REEVES Age: 71 : 1945 Gender: F Exam Date: 04/05/2017 15:39 Exam Location: ER Ht (in): 65 Wt (lb): 194 BSA: 2.04 BP: 125 / 60 Ordering Physician: Sole Smith MD Referring Physician: Sole Smith MD Technologist: Ibeth Rooney [facility] [[email or web address]] Room Number: ER#5 Indications: CARDIOMYOPATHY Rhythm: Sinus Technical Quality: Fair FINDINGS Left Ventricle Normal size left ventricle. Mild concentric left ventricular hypertrophy. Normal left ventricular ejection fraction visually estimated at >60%. Normal left ventricular wall motion. Normal left ventricular diastolic filling pattern for age. Right Ventricle Normal right ventricular size and function. Right Atrium Normal right atrial size. Left Atrium Mild left atrial dilatation. Mitral Valve Mild mitral annular calcification. Trace mitral regurgitation. Aortic Valve Aortic valve mildly thickened. No aortic regurgitation. No aortic stenosis. Tricuspid Valve Tricuspid valve not well visualized, grossly normal. Trace tricuspid regurgitation. No evidence of pulmonary hypertension. Pulmonic Valve Pulmonic valve not well visualized, grossly normal. Trace pulmonic regurgitation. Pericardium No pericardial effusion. Great Vessels Normal size aortic root. CONCLUSIONS Normal size left ventricle. Mild concentric left ventricular hypertrophy. Normal left ventricular ejection fraction visually estimated at > 60%. Mild left atrial dilatation. Trace mitral regurgitation. Trace tricuspid regurgitation. Trace pulmonic regurgitation. Fernando Gonzalez M.D. (Electronically Signed) Final Date: 06 April 2017 13:07 MEASUREMENTS (Male / Female) Normal Values 2D ECHO LV Diastolic Diameter PLAX 3.9 cm 4.2 - 5.9 / 3.9 - 5.3 cm LV Systolic Diameter PLAX 2.1 cm 2.1 - 4.0 cm LV Fractional Shortening PLAX 46.2 % 25 - 46 % LV Ejection Fraction 2D Teich 78.1 % IVS Diastolic Thickness 1.4 cm LVPW Diastolic Thickness 1.3 cm LV Relative Wall Thickness 0.7 RV Internal Dim ED PLAX 2.9 cm 1.9 - 3.8 cm LVOT Diameter 2.0 cm Aortic Root Diameter 3.2 cm LA Systolic Diameter LX 4.2 cm 3.0 - 4.0 / 2.7 - 3.8 cm LA Volume 32.0 cm 18 - 58 / 22 - 52 cm Ascending Aorta Diameter 3.1 cm DOPPLER AV Peak Velocity 158.0 cm/s AV Peak Gradient 10.0 mmHg AV Mean Velocity 96.3 cm/s AV Mean Gradient 4.0 mmHg AV Velocity Time Integral 34.9 cm LVOT Peak Velocity 132.0 cm/s LVOT Peak Gradient 7.0 mmHg LVOT Mean Velocity 83.8 cm/s LVOT Mean Gradient 3.0 mmHg LVOT Velocity Time Integral 30.5 cm LVOT Stroke Volume 95.8 cm AV Area Cont Eq vti 2.7 cm AV Area Cont Eq pk 2.6 cm MV Peak Velocity 100.0 cm/s MV Peak Gradient 4.0 mmHg MV Mean Velocity 48.4 cm/s MV Mean Gradient 1.0 mmHg Mitral E Point Velocity 73.1 cm/s Mitral A Point Velocity 73.1 cm/s Mitral E to A Ratio 1.0 MV PHT Velocity 109.0 cm/s MV Deceleration [place] 657.0 cm/s MV Pressure Half Time 49.8 ms MV Area PHT 4.4 cm MV Deceleration Time 257.0 ms TR Peak Velocity 276.0 cm/s TR Peak Gradient 30.5 mmHg Right Atrial Pressure 5.0 mmHg Pulmonary Artery Systolic Pressu 35.5 mmHg Right Ventricular Systolic Press 35.5 mmHg PV Peak Velocity 105.0 cm/s PV Peak Gradient 4.4 mmHg PV Mean Velocity 74.9 cm/s PV Mean Gradient 3.0 mmHg PV Velocity Time Integral 27.4 cm LV E' Lateral Velocity 9.7 cm/s Mitral E to LV E' Lateral Ratio 7.6 LV E' Septal Velocity 8.1 cm/s Mitral E to LV E' Septal Ratio 9.0 DICTATED BY: Fernando Gonzalez MD DATE/TIME DICTATED:04/06/171306 STRATEGIC PARTNER DEVELOPMENT MANAGER:NORRIS DATE/TIME TRANSCRIBED:04/06/171306 CONFIDENTIAL, DO NOT COPY WITHOUT APPROPRIATE AUTHORIZATION. <Electronically signed in Other Vendor System> SIGNED BY: Fernando Gonzalez MD 04/06/171307 Disposition Summary Disposition Principal Diagnosis: Acute Resp failure COPD exacerbation/acute bronchitis Additional Diagnosis: None Discharge Disposition: home or self care Discharge Instructions General Discharge Information Code Status: Full Code Patient's Diet: Heart healthy diet Patient's Activity: As tolerated Follow-Up Instructions/Appts: Please follow-up with your primary care physician in one week of discharge Please follow-up with your grove superintendent in 1 week of discharge Please take medications as prescribed Medications at Discharge Discharge Medications: Start taking the following new medications: Prednisone (Prednisone) 10 MG TABLET 6 Tablet ORAL DAILY Qty = 42 No Refills Instructions: .TAKE 6 TAB FOR 2 DAYS THEN 5 FOR 2 DAYS,THEN 4 T FOR 2 DAYS THEN 3 T FOR 2 DAYS THEN 1 TAB FOR 2 DAYS AND STOP Comments: HAS NOT STARTED Guaifenesin (Guaifenesin ER) 600 MG TAB.ER.12H 600 Milligram ORAL EVERY 12 HOURS Qty = 10 No Refills Instructions: . Comments: Last Taken:04/10/17 Time:0900 Budesonide/Formoterol Fumarate (Symbicort 160-4.5 Mcg Inhaler) 160 MCG-4.5 MCG/ ACTUATION HFA.AER.AD 2 Puff Inhale through mouth TWICE DAILY Qty = 1 No Refills Instructions: . Comments: DID NOT GET IN HOSPITAL Albuterol Sulfate (Proair Hfa) 90 MCG HFA.AER.AD 2 Puff Inhale through mouth EVERY 4-6 HOURS NEEDED as needed for SOB Qty = 1 No Refills Instructions: . Comments: Last Taken:04/10/17 Time:0800 Tiotropium [place] (Spiriva) 18 MCG CAP.W.DEV 1 Capsule Inhale through mouth DAILY Qty = 30 No Refills Instructions: . Comments: DID NOT TAKE IN HOSPITAL Copies To: Marita Ortiz DO Attending Review Statement Documenting Attending: Edgar PIERRE,Chayito
== END 2017-04-10 12:45 | DRG 189 ==
LOC: ERH 14:39 → ERHI 20:57 → 2NA 20:57 → ERHI 04-05 09:08 → ENRESERV 04-05 16:05 → ENTRNSPT 04-05 16:58 → EDTRNSPTSTS 04-05 17:00 → 2NA 04-05 17:08 → CMPTRNSPT 04-05 17:18 → ENPENDDIS 04-10 10:31 → 2NA 04-10 12:45
PROVIDERS: Hospitalist; Internal Medicine; Physician Assistant; Student in an Organized Health Care Education/Training Program
DX: J96.01 Acute respiratory failure with hypoxia (principal); J44.0 Chronic obstructive pulmonary disease with (acute) lower respiratory infection; J44.1 Chronic obstructive pulmonary disease with (acute) exacerbation; R73.03 Prediabetes; F17.210 Nicotine dependence, cigarettes, uncomplicated; R60.0 Localized edema; J20.9 Acute bronchitis, unspecified
CPT/HCPCS: 2NASP; ERO; 36415; 71046; 82436; 87040; 87070; 87804; 87804-59; 93005; 93010; 93306; 94644; 96374; 96375; J0131; J0456; J1650; J2920; J2930; J7040; J7060; Q2036